=== PATIENT | male | born 1955 | race Caucasian/White ===

== ENCOUNTER → 2016-04-29 | Outpatient (REF) | payer OTHER ==
[2016-04-29 12:53] LABS: ALBUMIN 3.9 GM/DL (3.2-5.2); ALBUMIN/GLOBULIN RATIO 1.22 (1.00-1.93); ALKALINE PHOSPHATASE 92 U/L (45-117); ALT/SGPT 62 U/L (12-78); ANION GAP 10 MEQ/L (8-16); AST/SGOT 25 U/L (15-37); BILIRUBIN,TOTAL 0.5 MG/DL (0.2-1.0); BLOOD UREA NITROGEN 21 MG/DL (7-18); CALCIUM LEVEL 9.5 MG/DL (8.8-10.2); CARBON DIOXIDE LEVEL 28 MEQ/L (21-32); CHLORIDE LEVEL 101 MEQ/L (98-107); CHOLESTEROL LEVEL 170 MG/DL (<200); CREATININE FOR GFR 1.25 MG/DL (0.70-1.30); GLOMERULAR FILTRATION RATE > 60.0 (>49); GLUCOSE, FASTING 182 MG/DL (80-110); POTASSIUM SERUM 4.6 MEQ/L (3.5-5.1); SODIUM LEVEL 139 MEQ/L (136-145); TOTAL PROTEIN 7.1 GM/DL (6.4-8.2); TRIGLYCERIDES LEVEL 233 MG/DL (<150)
== END ==
LOC: M SFHCCLAY 09:13
PROVIDERS: ATTEND Family Medicine
DX: E11.65 Type 2 diabetes mellitus with hyperglycemia (principal)

== ENCOUNTER → 2016-08-16 | Outpatient (REF) | payer OTHER ==
[2016-08-16 11:38] LABS: ALBUMIN 3.5 GM/DL (3.2-5.2); ALBUMIN/GLOBULIN RATIO 0.97 (1.00-1.93); BILIRUBIN,TOTAL 0.5 MG/DL (0.2-1.0); CALCIUM LEVEL 9.2 MG/DL (8.8-10.2); CREATININE FOR GFR 1.35 MG/DL (0.70-1.30); POTASSIUM SERUM 4.7 MEQ/L (3.5-5.1); TOTAL PROTEIN 7.1 GM/DL (6.4-8.2)
== END ==
LOC: M SFHCCLAY 09:22
PROVIDERS: ATTEND Family Medicine
DX: E11.65 Type 2 diabetes mellitus with hyperglycemia (principal)

== ENCOUNTER → 2016-08-26 | Outpatient (CLI) | payer BC, OTHER ==
[~2016-08-26] MED LIST: E-Z-GAS II EFFERVESCENT PACKET (SODIUM BICARB./CITRIC ACID/SIMETHICONE) As Ordered ONE; E-Z-HD 98% w/w 340GM SUSP BTL As Ordered ONE; E-Z-PAQUE 96% w/w SUSP 176GM BTL As Ordered ONE
--- NOTE | 2016-08-27 08:46 | REP ---
UPPER GI AIR CONTRAST AND ESOPHAGRAM: The procedure was performed under the direct supervision of Dr. Chan. The images were reviewed with Dr. Chan. A single view PA chest x-ray is submitted as a environmental research project manager film. There is no change compared to a previous chest x-ray performed on 08/12/2011. The abdominal environmental research project manager film shows no organomegaly or pathological masses. The intestinal gas pattern is nonspecific. Liquid barium and gas producing granules were given in the erect position as well as liquid barium in the prone oblique position in order to perform a double contrast esophagram and upper GI examination. The oral and pharyngeal stages of deglutition are unremarkable. Esophageal transport is prompt and efficient and there no esophagitis, stricture, or mucosal ring or hiatal hernia. Gastroesophageal reflux is not demonstrated on this examination. Within the stomach in the fundus and body of the stomach there are prominent folds which may represent gastritis. There is no alyssa ulcer identified. The duodenal vallecillo are normally outlined. The mucosal folds are smooth and regular. There is no duodenitis, pancreatitis, peptic ulcer disease or neoplasm. There is a duodenal diverticulum seen off the descending portion of the duodenum. IMPRESSION: 1. There are thickened folds in the fundus and body of the stomach which may represent gastritis. There is no alyssa ulcer identified. 2. There is a diverticulum seen off the descending portion of the duodenum. 2 minutes and 4 seconds of fluoroscopic time was utilized for this procedure.
== END ==
LOC: M RAD 08:05
PROVIDERS: ATTEND Surgery
DX: K57.10 Diverticulosis of small intestine without perforation or abscess without bleeding (principal); R10.13 Epigastric pain

== ENCOUNTER → 2016-11-25 | Outpatient (REF) | payer OTHER ==
[2016-11-25 18:30] LABS: ALBUMIN 3.8 GM/DL (3.2-5.2); ALBUMIN/GLOBULIN RATIO 1.12 (1.00-1.93); BILIRUBIN,TOTAL 0.5 MG/DL (0.2-1.0); CALCIUM LEVEL 9.2 MG/DL (8.8-10.2); CREATININE FOR GFR 1.55 MG/DL (0.70-1.30); GLOMERULAR FILTRATION RATE 48.6 (>49); POTASSIUM SERUM 4.9 MEQ/L (3.5-5.1); TOTAL PROTEIN 7.2 GM/DL (6.4-8.2)
== END ==
LOC: M SFHCCLAY 09:45
PROVIDERS: ATTEND Family Medicine
DX: E11.65 Type 2 diabetes mellitus with hyperglycemia (principal); Z12.5 Encounter for screening for malignant neoplasm of prostate
CPT/HCPCS: 80053; 80061; 83036; G0103

== ENCOUNTER → 2017-05-21 | Outpatient (REF) | payer OTHER ==
[2017-05-21 12:41] LABS: ALBUMIN/GLOBULIN RATIO 1.25 (1.00-1.93); ALKALINE PHOSPHATASE 119 U/L (45-117); ALT/SGPT 58 U/L (12-78); ANION GAP 8 MEQ/L (8-16); AST/SGOT 21 U/L (7-37); BILIRUBIN,TOTAL 0.3 MG/DL (0.2-1.0); BLOOD UREA NITROGEN 23 MG/DL (7-18); CALCIUM LEVEL 9.4 MG/DL (8.8-10.2); CARBON DIOXIDE LEVEL 29 MEQ/L (21-32); CHLORIDE LEVEL 101 MEQ/L (98-107); CHOLESTEROL LEVEL 186 MG/DL (<200); CHOLESTEROL RISK RATIO 4.043 (<5); CREATININE FOR GFR 1.45 MG/DL (0.70-1.30); GLOMERULAR FILTRATION RATE 52.5 (>49); GLUCOSE, FASTING 232 MG/DL (70-100); HDL CHOLESTEROL 46 MG/DL (>40); LDL CHOLESTEROL 96.8 MG/DL (<100); NON-HDL-C 140 MG/DL; POTASSIUM SERUM 4.7 MEQ/L (3.5-5.1); PSA SCREENING 3.92 NG/ML (< 4.0); SODIUM LEVEL 138 MEQ/L (136-145); TOTAL PROTEIN 7.2 GM/DL (6.4-8.2); TRIGLYCERIDES LEVEL 216 MG/DL (<150)
[2017-05-21 12:50] LABS: CREATININE, URINE 74.2 MG/DL; MAU/CREAT RATIO 187.3 MCG/MG (0.0-30.0)
[2017-05-21 13:07] LABS: ESTIMATED AVERAGE GLUCOSE 171 MG/DL (60-110); HEMOGLOBIN A1c 7.6 %
== END ==
LOC: M SFHCCLAY 09:09
DX: E11.65 Type 2 diabetes mellitus with hyperglycemia (principal); Z12.5 Encounter for screening for malignant neoplasm of prostate
CPT/HCPCS: 80053

== ENCOUNTER → 2017-08-22 | Outpatient (CLI) | payer BC, OTHER ==
[2017-08-22 17:27] LABS: APPEARANCE, URINE CLEAR (CLEAR); BACTERIA, URINE AUTO NEGATIVE (NEGATIVE); BILIRUBIN, URINE AUTO NEGATIVE (NEGATIVE); BLOOD, URINE BLOOD NEGATIVE (NEGATIVE); COLOR, URINE YELLOW (YELLOW); GLUCOSE, URINE (UA) AUTO 3+ mg/dL (NEGATIVE); KETONE, URINE AUTO NEGATIVE (NEGATIVE); LEUKOCYTE ESTERASE, URINE AUTO NEGATIVE (NEGATIVE); MUCUS, URINE SMALL (NEGATIVE); NITRITE, URINE AUTO NEGATIVE (NEGATIVE); PROTEIN, URINE AUTO 1+ mg/dL (NEGATIVE); RBC, URINE AUTO 0 /HPF (0-3); SPECIFIC GRAVITY URINE AUTO 1.017 (1.002-1.035); SQUAMOUS EPITHELIAL CELL UR AU 0 /HPF (0-6); UROBILINOGEN, URINE AUTO 0.2 mg/dL (0.0-2.0); WBC, URINE AUTO 1 /HPF (0-3)
[2017-08-27 00:07] LABS: PSA TOTAL 3.9 ng/mL (0.0-4.0)
== END ==
LOC: M SMT 14:31
DX: R97.20 Elevated prostate specific antigen [PSA] (principal); N40.1 Benign prostatic hyperplasia with lower urinary tract symptoms
CPT/HCPCS: 84154

== ENCOUNTER → 2017-11-17 | Outpatient (REF) | payer OTHER ==
[2017-11-17 12:17] LABS: ANION GAP 6 MEQ/L (8-16); BLOOD UREA NITROGEN 29 MG/DL (7-18); CALCIUM LEVEL 9.5 MG/DL (8.8-10.2); CARBON DIOXIDE LEVEL 30 MEQ/L (21-32); CHLORIDE LEVEL 104 MEQ/L (98-107); CREATININE FOR GFR 1.26 MG/DL (0.70-1.30); GLOMERULAR FILTRATION RATE > 60.0 (>49); GLUCOSE, FASTING 156 MG/DL (70-100); POTASSIUM SERUM 4.9 MEQ/L (3.5-5.1); SODIUM LEVEL 140 MEQ/L (136-145)
[2017-11-17 13:30] LABS: ESTIMATED AVERAGE GLUCOSE 146 MG/DL (60-110); HEMOGLOBIN A1c 6.7 %
== END ==
LOC: M SFHCCLAY 09:22
DX: E11.65 Type 2 diabetes mellitus with hyperglycemia (principal)
CPT/HCPCS: 83036

== ENCOUNTER → 2018-02-20 | Outpatient (REF) | payer OTHER ==
[2018-02-21 15:23] LABS: PSA % FREE 54.8 % (.); PSA FREE 2.52 ng/mL; PSA TOTAL 4.6 ng/mL (0.0-4.0)
== END ==
LOC: M LABDRAWC 12:18
DX: R97.20 Elevated prostate specific antigen [PSA] (principal)

== ENCOUNTER → 2018-02-20 | Outpatient (REF) | payer OTHER ==
[2018-02-20 13:02] LABS: ALBUMIN/GLOBULIN RATIO 1.18 (1.00-1.93); ALKALINE PHOSPHATASE 92 U/L (45-117); ALT/SGPT 30 U/L (12-78); ANION GAP 7 MEQ/L (8-16); AST/SGOT 16 U/L (7-37); BILIRUBIN,TOTAL 0.4 MG/DL (0.2-1.0); BLOOD UREA NITROGEN 29 MG/DL (7-18); CALCIUM LEVEL 10.3 MG/DL (8.8-10.2); CARBON DIOXIDE LEVEL 29 MEQ/L (21-32); CHLORIDE LEVEL 99 MEQ/L (98-107); CHOLESTEROL LEVEL 179 MG/DL (<200); CHOLESTEROL RISK RATIO 4.068 (<5); CREATININE FOR GFR 1.26 MG/DL (0.70-1.30); GLOMERULAR FILTRATION RATE > 60.0 (>49); GLUCOSE, FASTING 124 MG/DL (70-100); HDL CHOLESTEROL 44 MG/DL (>40); HEPATITIS C VIRUS ABY INDEX 0.1 INDEX (<0.8); HIV 1&2 SCREEN CENTAUR NEGATIVE (NEGATIVE); LDL CHOLESTEROL 92 MG/DL (<100); NON-HDL-C 135 MG/DL; POTASSIUM SERUM 4.8 MEQ/L (3.5-5.1); SODIUM LEVEL 135 MEQ/L (136-145); TOTAL PROTEIN 7.4 GM/DL (6.4-8.2); TRIGLYCERIDES LEVEL 216 MG/DL (<150)
[2018-02-20 15:20] LABS: ESTIMATED AVERAGE GLUCOSE 120 MG/DL (60-110); HEMOGLOBIN A1c 5.8 %
== END ==
LOC: M SFHCCLAY 09:02
DX: E11.65 Type 2 diabetes mellitus with hyperglycemia (principal); Z11.59 Encounter for screening for other viral diseases; Z11.4 Encounter for screening for human immunodeficiency virus [HIV]

== ENCOUNTER → 2018-03-16 | Outpatient (REF) | payer OTHER | LOC: M SMT 17:14 | DX: R97.20 Elevated prostate specific antigen [PSA] (principal) ==

== ENCOUNTER → 2018-03-16 | Outpatient (CLI) | payer BC, OTHER | LOC: M RAD 13:12 | DX: Z82.49 Family history of ischemic heart disease and other diseases of the circulatory system (principal) | CPT/HCPCS: 70544 ==

== ENCOUNTER → 2018-04-21 | Outpatient (CLI) | payer BC, OTHER ==
--- NOTE | 2018-04-21 15:45 | REP ---
TRANSRECTAL PROSTATE ULTRASOUND WITH ULTRASOUND GUIDANCE FOR PROSTATE BIOPSY: Real-time sonographic evaluation of the prostate was performed utilizing transrectal probe. The size of the gland is 5.5 x 4.9 x 5.1 cm for a total volume of 71.8 mL. Echotexture is heterogenous with scattered small calcifications and cysts. There appears to be a right sided nodule 9 x 5 mm and two left sided nodules measuring 15 x 12 and 23 x 16 mm. Seminal vesicles are unremarkable. Ultrasound guidance was provided for Dr. Elizalde who performed ultrasound guided biopsy of the prostate. Electronically Signed by Mendez Peter MD 04/21/2018 04:23 P
== END ==
LOC: M SMT PRO 10:49
PROVIDERS: ATTEND Urology
DX: R97.20 Elevated prostate specific antigen [PSA] (principal)
CPT/HCPCS: 76872; 76942; G0416

== ENCOUNTER → 2018-04-24 | Outpatient (REF) | payer BC, OTHER ==
[2018-04-24 18:08] LABS: APPEARANCE, URINE CLEAR (CLEAR); BACTERIA, URINE AUTO NEGATIVE (NEGATIVE); BILIRUBIN, URINE AUTO NEGATIVE (NEGATIVE); BLOOD, URINE BLOOD 2+ (NEGATIVE); COLOR, URINE YELLOW (YELLOW); GLUCOSE, URINE (UA) AUTO 3+ mg/dL (NEGATIVE); KETONE, URINE AUTO NEGATIVE (NEGATIVE); LEUKOCYTE ESTERASE, URINE AUTO NEGATIVE (NEGATIVE); MUCUS, URINE SMALL (NEGATIVE); NITRITE, URINE AUTO NEGATIVE (NEGATIVE); PROTEIN, URINE AUTO NEGATIVE (NEGATIVE); RBC, URINE AUTO 68 /HPF (0-3); SPECIFIC GRAVITY URINE AUTO 1.015 (1.002-1.035); SQUAMOUS EPITHELIAL CELL UR AU 0 /HPF (0-6); UROBILINOGEN, URINE AUTO 0.2 mg/dL (0.0-2.0); WBC, URINE AUTO 0 /HPF (0-3)
== END ==
LOC: M SMT 17:02
PROVIDERS: ATTEND Urology
DX: N39.0 Urinary tract infection, site not specified (principal)

== ENCOUNTER → 2018-06-25 | Outpatient (REF) | payer OTHER ==
[2018-06-25 13:27] LABS: BLOOD UREA NITROGEN 22 MG/DL (7-18); CALCIUM LEVEL 9.6 MG/DL (8.8-10.2); CARBON DIOXIDE LEVEL 29 MEQ/L (21-32); CHLORIDE LEVEL 102 MEQ/L (98-107); CREATININE FOR GFR 1.28 MG/DL (0.70-1.30); GLOMERULAR FILTRATION RATE > 60.0 (>49); GLUCOSE, FASTING 185 MG/DL (70-100); POTASSIUM SERUM 4.6 MEQ/L (3.5-5.1); SODIUM LEVEL 137 MEQ/L (136-145)
[2018-06-25 14:25] LABS: HEMOGLOBIN A1c 6.8 %
== END ==
LOC: M SFHCCLAY 09:14
PROVIDERS: ATTEND Nurse Practitioner Family
DX: E11.65 Type 2 diabetes mellitus with hyperglycemia (principal)

== ENCOUNTER → 2018-09-10 | Outpatient (CLI) | payer BC, OTHER ==
--- NOTE | 2018-09-10 12:34 | REP ---
Chest two views HISTORY: Hypertension Comparison: 08/12/2011 There is elevation of the right hemidiaphragm. The lungs are clear. The heart is normal in size. The pulmonary vasculature is normal in appearance. Generative change is present in the thoracic spine. IMPRESSION: No acute disease. Electronically Signed by See Delgadillo MD 09/10/2018 12:26 P
== END ==
LOC: M WUC 11:03
PROVIDERS: ATTEND Physician Assistant
DX: R05 Cough (principal)

== ENCOUNTER → 2018-10-13 | Outpatient (REF) | payer OTHER ==
[~2018-10-13] MED LIST changes: +ASPI81TA85 PO; +ATEN50TA2 PO; +ATOR80TA59 PO; +CHLO125TA PO; +CORE25TA PO; -E-Z-GAS II EFFERVESCENT PACKET (SODIUM BICARB./CITRIC ACID/SIMETHICONE) As Ordered ONE; -E-Z-HD 98% w/w 340GM SUSP BTL As Ordered ONE; -E-Z-PAQUE 96% w/w SUSP 176GM BTL As Ordered ONE; +GLUCCAP23 PO; +GLYB5TA PO; +INVO100T PO; +JANU100T PO; +LISI-538 PO; +METF10004 PO; +METO50TA7 PO; +MULTCAP PO; +NITR0.4S14 SL; +OMEP-218 PO; +OYST1TAB PO; +PLAV1TAB2 PO; +TRUL0.5I SC
[2018-10-16 15:45] LABS: PSA % FREE 42.3 % (.); PSA FREE 1.69 ng/mL
== END ==
LOC: M SFHCCLAY 11:41
PROVIDERS: ATTEND Urology
DX: R97.20 Elevated prostate specific antigen [PSA] (principal)

== ENCOUNTER → 2018-11-19 | Outpatient (CLI) | payer OTHER ==
[2018-11-19 14:46] LABS: BASO # 0.1 10^3/uL (0.0-0.2); BASO % 0.8 % (0.0-1.0); EOS # 0.1 10^3/uL (0.0-0.50); EOS % 1.7 % (0.0-3.0); HEMATOCRIT 44.3 % (42.0-52.0); HEMOGLOBIN 15.3 g/dl (13.5-17.5); LYMPH # 1.6 10^3/uL (1.5-4.5); LYMPH % 22.6 % (24.0-44.0); MEAN CORPUSCULAR HEMOGLOBIN 31.2 pg (27.0-33.0); MEAN CORPUSCULAR HGB CONC 34.5 g/dl (32.0-36.5); MEAN CORPUSCULAR VOLUME 90.2 fl (80.0-96.0); MONO # 0.8 10^3/uL (0.0-0.8); MONO % 10.4 % (0.0-5.0); NEUTROPHILS # 4.6 10^3/uL (1.8-7.7); NEUTROPHILS % 64.1 % (36.0-66.0); PLATELET COUNT, AUTOMATED 210 10^3/uL (150-450); RED BLOOD COUNT 4.91 10^6/uL (4.30-6.10); WHITE BLOOD COUNT 7.2 10^3/uL (4.0-10.0)
[2018-11-19 14:54] LABS: CALCIUM LEVEL 9.5 MG/DL (8.8-10.2); CREATININE FOR GFR 1.34 MG/DL (0.70-1.30); GLOMERULAR FILTRATION RATE 57.1 (>49); POTASSIUM SERUM 4.3 MEQ/L (3.5-5.1)
== END ==
LOC: M SMT 10:52
PROVIDERS: ATTEND Physician Assistant
DX: I25.118 Atherosclerotic heart disease of native coronary artery with other forms of angina pectoris (principal)

== ENCOUNTER → 2018-12-25 | Outpatient (REF) | payer OTHER ==
[~2018-12-25] MED LIST changes: -CORE25TA PO; -METO50TA7 PO; -NITR0.4S14 SL; -PLAV1TAB2 PO; -TRUL0.5I SC
[2018-12-25 18:03] LABS: BASO # 0.1 10^3/uL (0.0-0.2); BASO % 0.7 % (0.0-1.0); EOS # 0.2 10^3/uL (0.0-0.5); EOS % 2.2 % (0.0-3.0); HEMATOCRIT 41.6 % (42.0-52.0); HEMOGLOBIN 14.3 g/dl (13.5-17.5); LYMPH # 1.3 10^3/uL (1.5-5.0); LYMPH % 19.8 % (24.0-44.0); MEAN CORPUSCULAR HGB CONC 34.4 g/dl (32.0-36.5); MONO # 0.7 10^3/uL (0.0-0.8); NEUTROPHILS # 4.5 10^3/uL (1.5-8.5); PLATELET COUNT, AUTOMATED 183 10^3/uL (150-450); RED BLOOD COUNT 4.62 10^6/uL (4.30-6.10); WHITE BLOOD COUNT 6.7 10^3/uL (4.0-10.0)
[2018-12-25 18:08] LABS: ALBUMIN 3.8 GM/DL (3.2-5.2); BILIRUBIN,TOTAL 0.4 MG/DL (0.2-1.0); CALCIUM LEVEL 10.2 MG/DL (8.8-10.2); CHOLESTEROL RISK RATIO 2.962 (<5); CREATININE FOR GFR 1.34 MG/DL (0.70-1.30); GLOMERULAR FILTRATION RATE 57.1 (>49); POTASSIUM SERUM 4.6 MEQ/L (3.5-5.1); TOTAL PROTEIN 6.9 GM/DL (6.4-8.2)
[2018-12-25 18:40] LABS: CREATININE, URINE 44.3 MG/DL; MAU/CREAT RATIO 528.2 MCG/MG (0.0-30.0)
[2018-12-25 19:25] LABS: HEMOGLOBIN A1c 7.6 %
== END ==
LOC: M SFHCCLAY 10:06
PROVIDERS: ATTEND Nurse Practitioner Family
DX: E11.65 Type 2 diabetes mellitus with hyperglycemia (principal); I10 Essential (primary) hypertension

== ENCOUNTER → 2019-01-29 | Outpatient (REF) | payer OTHER ==
[2019-01-29 12:16] LABS: BLOOD UREA NITROGEN 17 MG/DL (7-18); CALCIUM LEVEL 10.2 MG/DL (8.8-10.2); CARBON DIOXIDE LEVEL 27 MEQ/L (21-32); CHLORIDE LEVEL 102 MEQ/L (98-107); CREATININE FOR GFR 1.22 MG/DL (0.70-1.30); GLOMERULAR FILTRATION RATE > 60.0 (>49); GLUCOSE, FASTING 179 MG/DL (70-100); POTASSIUM SERUM 4.4 MEQ/L (3.5-5.1); SODIUM LEVEL 138 MEQ/L (136-145)
== END ==
LOC: M SFHCCLAY 09:13
PROVIDERS: ATTEND Nurse Practitioner Family
DX: I10 Essential (primary) hypertension (principal)

== ENCOUNTER → 2019-03-25 | Outpatient (REF) | payer OTHER ==
[2019-03-25 18:40] LABS: HEMATOCRIT 38.8 % (42.0-52.0); HEMOGLOBIN 12.4 g/dl (13.5-17.5); MEAN CORPUSCULAR HEMOGLOBIN 28.9 pg (27.0-33.0); MEAN CORPUSCULAR VOLUME 90.4 fl (80.0-96.0); PLATELET COUNT, AUTOMATED 236 10^3/uL (150-450); RED BLOOD COUNT 4.29 10^6/uL (4.30-6.10); WHITE BLOOD COUNT 6.8 10^3/uL (4.0-10.0)
[2019-03-25 18:41] LABS: BLOOD UREA NITROGEN 19 MG/DL (7-18); CALCIUM LEVEL 8.5 MG/DL (8.8-10.2); CARBON DIOXIDE LEVEL 30 MEQ/L (21-32); CHLORIDE LEVEL 105 MEQ/L (98-107); CREATININE FOR GFR 1.12 MG/DL (0.70-1.30); GLOMERULAR FILTRATION RATE > 60.0 (>49); GLUCOSE, FASTING 149 MG/DL (70-100); POTASSIUM SERUM 4.1 MEQ/L (3.5-5.1); SODIUM LEVEL 138 MEQ/L (136-145)
== END ==
LOC: M LABDRAWC 17:19 → M LABDRAW1 17:19
PROVIDERS: ATTEND Physician Assistant
DX: I25.118 Atherosclerotic heart disease of native coronary artery with other forms of angina pectoris (principal)

== ENCOUNTER → 2019-03-25 | Outpatient (REF) | payer OTHER | LOC: M SFHCCLAY 09:27 | PROVIDERS: ATTEND Nurse Practitioner Family | DX: R97.20 Elevated prostate specific antigen [PSA] (principal) ==

== ENCOUNTER 2019-04-12 12:54 | Outpatient (RCR) | payer BC, OTHER ==
--- NOTE | 2019-04-01 13:52 | CARECAPL ---
Assessment Account #s: Initial Assessment General Diagnoses: CABG, Stent Date of event: Feb 05, 2019 Physician: Kaiden Lord Allergies: Coded Allergies: No Known Allergies (Unverified , 11/17/18) Risk strat for cardiac event: High Exercise Assessment: Initial Assessment Stages of change: Pre-contemplation Exercise Prescription Plan Educate on cardiovascular disease and increase endurance, strength and flexibility through monitored exercise program. Modalities initiated: Treadmill (will add speed 2.0 for 8 minutes), Nustep (will add level 1 for 6 minutes), Arm Aerometer (will add resistance of 1 for 5 minutes), Dumbells (will add 1lbs), Recumbent Bike (will add resistance of 1 for 5 minutes.) Frequency: 3 Duration (Minutes) 30 - 60 minutes total exercise a day. 15 - 20 work intervals in minutes. PRN rest intervals in minutes. Functional Capacity Goal Sustained Metabolic Equivalent of a task (MET) goal of 2.5-3.5 for 15-20 minutes. Intensity: 3-Moderate Progression (METS) Increase by: 0.5 METS every: 3-5 sessions Angina with ex: No Target Heart Rate 101-133 age prediction of 65% to 85%. Resistance Training: Yes Weight (pounds): 1 Reps: 6-8 Medications Scheduled Aspirin (Aspir 81), 81 MG PO DAILY, (Reported) Atorvastatin Calcium (Atorvastatin Calcium), 80 MG PO DAILY, (Reported) Chlorthalidone (Chlorthalidone), 12.5 MG PO DAILY, (Reported) Clopidogrel Bisulfate (Plavix), 75 MG PO DAILY, (Reported) Dulaglutide (Trulicity), 1.5 MG SC Q7D, (Reported) Glucos Sul 2Kcl/MSM/Chond/C/Mn (Glucosamine Chondroitin Cap), 1 EACH PO DAILY, (Reported) Glyburide (Glyburide), 5 MG PO BID, (Reported) Lisinopril (Lisinopril), 10 MG PO DAILY, (Reported) Metformin HCl (Metformin HCl), 1,000 MG PO BID, (Reported) Nitroglycerin (Nitroglycerin), 0.4 MG SL ASDIRECTED, (Reported) Omeprazole (Omeprazole), 20 MG PO BID, (Reported) Sitagliptin Phosphate (Januvia), 100 MG PO DAILY, (Reported) Discontinued Medications Atenolol (Atenolol), 75 MG PO DAILY, (Reported) Discontinued Reason: PCP discontinued med Calcium Carbonate (Calcium), 500 MG PO DAILY, (Reported) Discontinued Reason: PCP discontinued med Canagliflozin (Invokana), 100 MG PO DAILY, (Reported) Discontinued Reason: PCP discontinued med Metoprolol Tartrate (Metoprolol Tartrate), 50 MG PO BID, (Reported) Discontinued Reason: Pt states not taking Multivitamin (Multivitamins), 1 CAP PO DAILY, (Reported) Discontinued Reason: PCP discontinued med Intervention Home exercise: Type (walking), Frequency (5 days a week ), Duration (60 minutes) Resistance Training: No Education Goals Met: No Target Goals Individual exercise Rx (1) BP 140/90 or 130/80 if DM or CKD (1) Aerobic active 30+min 5 days per week (1) Nutrition Date: Apr 01, 2019 Assessment: Initial Assessment Stages of change: Pre-contemplation Lipids Total Cholesterol (157), High Density Lipids (HDL) (53), Low Density Lipids (LDL) (69), Triglycerides (176), Duration (2.962) Lipid- med/supplement atorvastatin Diabetes Diabetes: Yes Fasting Blood Sugar: 179 HbA1c (%): 7.6 Diabetes medication trucility, glyburide and metformin Monitor Blood Sugar at home: Yes Frequency bid Weight Management Weight (lbs): 210.2 Height (inches): 63 Waist Circumference (Inches): 46 BMI: 37.20 Weight goal: 170 Special Diet: low salt, low-fat Alcohol: special Alcohol Type: beer Alcohol Amount: 1-2 Diet Access Tool: Rate your plate Score: 51 Intervention Knockup Worker Consult: No Nurse/patient discussion: No Diet Class: No Referral to Diabetes education: No Referral to lipid clinic: No Referral to weight mangement p: No Education Goals Met: No Target goal LDL-C<100 if triglycerides are >200 Non-HDL-C should be <130 (1) LDL-C<70 for high risk patients (4) HbA1c<7% (1) BMI<25 Waist cir<40in M/<35in F (1) Education Date: Apr 01, 2019 Assessment: Initial Assessment Knowledge Test Score: 9 Stages of change: Pre-contemplation Family Support: Yes Tobacco use: No Quit: >6 months (quit 1981) Education Goals Met: No Target Goals Complete cessation of tobacco use (1). Psychosocial Date: Apr 01, 2019 Assessment: Initial Assessment Psych Test (Initial/Discharge) Tool Used: CESD Score: 0 Stages of change: Pre-contemplation Intervention Physician Consult: No Physician Referral: No Psychotropic medication none Stress Management Class: No Uses Stress Management Skills: No Education Goals Met: No Target Goal Assess presence or absence of depression using a valid screening tool (1). Maximize coping skills (2). Positive support system (2). Patient/Program Goal Preventative Medication: Yes Aspirin, Yes Clopidogrel, Yes HANNAH Inhibitor, Yes Statin/OTR lipid Lowering Fall Risk Assess: Yes (no fall risk) Provider Assessment Provider Assessment: Proceed with rehab Anali Harman RN Apr 01, 2019 13:52
[~2019-04-12 12:54] MED LIST changes: +METO50TA7 PO; +NITR0.4S14 SL; +PLAV1TAB2 PO; +TRUL0.5I SC
[2019-04-19] MEDS ORDERED: CORE25TA PO (09:52)
== END 2019-04-13 ==
LOC: M CR 12:54
PROVIDERS: ATTEND Internal Medicine Cardiovascular Disease
DX: Z95.1 Presence of aortocoronary bypass graft (principal)

== ENCOUNTER → 2019-05-14 | Outpatient (RCR) | payer BC, OTHER ==
--- NOTE | 2019-04-26 10:36 | CARECAPL ---
Assessment Account #s: Re-Assessment I General Diagnoses: CABG, Stent Date of event: Feb 05, 2019 Physician: Kaiden Lord Allergies: Coded Allergies: No Known Allergies (Unverified , 11/17/18) Date Entered Program: Apr 09, 2019 Risk strat for cardiac event: High Exercise Date: Apr 23, 2019 Assessment: Re-Assessment I Stages of change: Contemplate Exercise Prescription Plan Educate on cardiovascular disease and increase flexibility, strength and endurance through a monitored exercise program. Modalities initiated: Treadmill (speed 2.5 incline 1.5 for 10 minutes mets 3.26 RPE 3), Nustep (resistance of 4 for 15 minutes. Mets 3.4 RPE 3), Arm Aerometer (resistance of 1.5 for 10 minutes. Mets 2.4 RPE 3.5), Dumbells (5lb 1 set 15 reps RPE 3.5), Recumbent Bike (resistance of 8 minutes. Mets 3.2 RPE 4) Frequency: 3 Duration (Minutes) 30 - 60 minutes total exercise a day. 15 - 20 work intervals in minutes. PRN rest intervals in minutes. Functional Capacity Goal Sustained Metabolic Equivalent of a task (MET) goal of 3.5-4.5 for 13-20 minutes. Intensity: 3-Moderate Progression (METS) Increase by: 0.5 METS every: 3-5 sessions Angina with ex: No Target Heart Rate rest + 35-40 per beta crow therapy. Resistance Training: Yes Weight (pounds): 5 Reps: 12-15 Hypertension: No Hypertension controlled with: Medication Resting 152/80 Peak Exercise BP 160/90 Meds Coreg Medications Scheduled Aspirin (Aspir 81), 81 MG PO DAILY, (Reported) Atorvastatin Calcium (Atorvastatin Calcium), 80 MG PO DAILY, (Reported) Carvedilol (Coreg), 25 MG PO BID, (Reported) Chlorthalidone (Chlorthalidone), 12.5 MG PO DAILY, (Reported) Clopidogrel Bisulfate (Plavix), 75 MG PO DAILY, (Reported) Dulaglutide (Trulicity), 1.5 MG SC Q7D, (Reported) Glucos Sul 2Kcl/MSM/Chond/C/Mn (Glucosamine Chondroitin Cap), 1 EACH PO DAILY, (Reported) Glyburide (Glyburide), 5 MG PO BID, (Reported) Lisinopril (Lisinopril), 10 MG PO DAILY, (Reported) Metformin HCl (Metformin HCl), 1,000 MG PO BID, (Reported) Nitroglycerin (Nitroglycerin), 0.4 MG SL ASDIRECTED, (Reported) Omeprazole (Omeprazole), 20 MG PO BID, (Reported) Sitagliptin Phosphate (Januvia), 100 MG PO DAILY, (Reported) Intervention Education: Self pulse (patient demonstrate taking his pulse.), Ex safety (patient states to keep hydrated and wear loose comfortable clothing to exercise.), S/S to report (patient states report chest pain that does not go away, Nausea /vomiting and excessive sweating without exercise), Low NA diet (patient states he does not add salt to his food if he does it will increase his blood pressure.), BP medication (patient states Coreg decreases his blood pressure and lowers his heart rate.), RPE Scale (patient demonstrates independently), Equipment orientation (patient demonstrates independent), warm up/cool down (demonstrates independently), Understand BP (patient understands that his blood pressure should be below 130/80), Physical Active (patient understands that he should remain physically active after attending cardiac rehabilitation which includes going to [employer] or [facility].) Education Goals Met: No (will continue to educate throughout program.) Target Goals Individual exercise Rx (1) BP 140/90 or 130/80 if DM or CKD (1) Aerobic active 30+min 5 days per week (1) Nutrition Date: Apr 26, 2019 Assessment: Re-Assessment I Stages of change: Contemplate Med Change: No Diabetes Diabetes: Yes Medication Change: No Random Blood Sugar: 197 Blood sugar in range: Yes Current Weight (pounds): 210.4 Weight Goal Patient would like to lose 20 pounds Education S&S hypo/hyper glycemia (patient described signs and symptoms of hypo-hyper glycemia such as excessive hunger, fatigue and shakiness. Hyperglycemia would be frequent urination, increased hunger, and increased thirst. ), Relate Diabetes in CAD (increased blood sugars contribute to clogging of the arteries which contributes to coronary artery disease), Eating Healthy (patient stated eating healthier by eating more vegetables and whole grains.) Education Goals Met: No (will continue educate throughout program) Target goal LDL-C<100 if triglycerides are >200 Non-HDL-C should be <130 (1) LDL-C<70 for high risk patients (4) HbA1c<7% (1) BMI<25 Waist cir<40in M/<35in F (1) Education Date: Apr 26, 2019 Assessment: Re-Assessment I Family Support: Yes Tobacco use: No Education Goals Met: No (will continue to educate throughout program) Target Goals Complete cessation of tobacco use (1). Psychosocial Date: Apr 26, 2019 Assessment: Re-Assessment I Stages of change: Contemplate Med Change: No Education Goals Met: No (we'll continue to educate throughout program) Target Goal Assess presence or absence of depression using a valid screening tool (1). Maximize coping skills (2). Positive support system (2). Patient/Program Goal Preventative Medication: Yes Clopidogrel, Yes Beta blockade, Yes HANNAH Inhibitor, Yes Statin/OTR lipid Lowering Fall Risk Assess: Yes (not fall risk) Provider Assessment Session Number: 7 Provider Assessment: Proceed with rehab (patient was progressing well and attendance is good.) Anali Harman RN Apr 26, 2019 10:36
[~2019-05-14] MED LIST changes: +CORE25TA PO
== END ==
LOC: M CR 04-15 10:57
PROVIDERS: ATTEND Internal Medicine Cardiovascular Disease
DX: Z95.1 Presence of aortocoronary bypass graft (principal)

== ENCOUNTER 2019-06-09 11:22 | Outpatient (RCR) | payer BC, OTHER ==
--- NOTE | 2019-05-24 17:32 | CARECAPL ---
Assessment Account #s: Re-Assessment II General Diagnoses: CABG, Stent Date of event: Feb 05, 2019 Physician: Kaiden Lord Allergies: Coded Allergies: No Known Allergies (Unverified , 11/17/18) Date Entered Program: Apr 09, 2019 Risk strat for cardiac event: High Exercise Date: May 24, 2019 Assessment: Re-Assessment II Stages of change: Preperation Exercise Prescription Plan TO EDUCATE AND BUILD ENDURANCE THROUGH MONITORED EXERCISE PROGRAM Modalities initiated: Treadmill (METS=4.19/RPE=3), Nustep (METS=4.9/RPE=3.5), Arm Aerometer (METS=2.6/RPE=3.5), Dumbells (8#/RPE=3), Recumbent Bike (METS=5.6/RPE=3) Frequency: 3 Duration (Minutes) 30 - 60 minutes total exercise a day. 15 - 20 work intervals in minutes. PRN rest intervals in minutes. Functional Capacity Goal Sustained Metabolic Equivalent of a task (MET) goal of 4.5-5.5 for 15-20 minutes. Intensity: 3-Moderate Progression (METS) Increase by: 0.5 METS every: 5 sessions TOLERATED Angina with ex: No Target Heart Rate REST + 35-40 Resistance Training: Yes Weight (pounds): 8 Reps: 12-15 Hypertension: Yes Hypertension controlled with: Medication (CARVEDILOL, CHLORTHALIDONE, LISINOPRIL) Resting 126/80 Peak Exercise BP 162/100 Medications Scheduled Aspirin (Aspir 81), 81 MG PO DAILY, (Reported) Atorvastatin Calcium (Atorvastatin Calcium), 80 MG PO DAILY, (Reported) Carvedilol (Coreg), 25 MG PO BID, (Reported) Chlorthalidone (Chlorthalidone), 12.5 MG PO DAILY, (Reported) Clopidogrel Bisulfate (Plavix), 75 MG PO DAILY, (Reported) Dulaglutide (Trulicity), 1.5 MG SC Q7D, (Reported) Glucos Sul 2Kcl/MSM/Chond/C/Mn (Glucosamine Chondroitin Cap), 1 EACH PO DAILY, (Reported) Glyburide (Glyburide), 5 MG PO BID, (Reported) Lisinopril (Lisinopril), 10 MG PO DAILY, (Reported) Metformin HCl (Metformin HCl), 1,000 MG PO BID, (Reported) Nitroglycerin (Nitroglycerin), 0.4 MG SL ASDIRECTED, (Reported) Omeprazole (Omeprazole), 20 MG PO BID, (Reported) Sitagliptin Phosphate (Januvia), 100 MG PO DAILY, (Reported) Current BP 98/56 Intervention Home exercise: Type (WALKING, HAND WEIGHTS, HOME EXERCISE EQUIPMENT, JOIN GYM), Frequency (3-5 DAYS PER WEEK), Duration (30-60 MINUTES) Resistance Training: Yes Education: Self pulse (SEE EDUCATION COMPLETED ON PRIOR ITP'S, CONTINUE TO REINFORCE EDUCATION THROUGHOUT PROGRAM) Education Goals Met: Yes (PROGRESSING TOWARDS GOALS) Target Goals Individual exercise Rx (1) BP 140/90 or 130/80 if DM or CKD (1) Aerobic active 30+min 5 days per week (1) Nutrition Date: May 24, 2019 Assessment: Re-Assessment II Stages of change: Preperation Lipid- med/supplement ATORVASTATIN Med Change: No Diabetes Diabetes: Yes Fasting Blood Sugar: 125 Diabetes medication GLYBURIDE, METFORMIN, JANUVIA Monitor Blood Sugar at home: Yes Medication Change: No Random Blood Sugar: 125 Blood sugar in range: Yes Weight Management Weight (lbs): 211 Special Diet: low salt Current Weight (pounds): 211 Weight Goal 190# Intervention Media/Instructional Designer Consult: No Nurse/patient discussion: Yes Dietary Goals MAKE HEART HEALTHY CHOICES, SMALLER PORTIONS Diet Class: Yes (MET WITH CLINICAL NURSE LEADER 05/24/2019) Referral to Diabetes education: No Referral to lipid clinic: No Referral to weight mangement p: No Education S&S hypo/hyper glycemia (SEE EDUCATION COMPLETED ON PRIOR ITP'S, EDUCATION REINFORCED THROUGHOUT PROGRAM) Education Goals Met: Yes (PROGRESSING TOWARD GOALS) Target goal LDL-C<100 if triglycerides are >200 Non-HDL-C should be <130 (1) LDL-C<70 for high risk patients (4) HbA1c<7% (1) BMI<25 Waist cir<40in M/<35in F (1) Education Date: May 24, 2019 Assessment: Re-Assessment II Learning Barriers: ready Stages of change: Preperation Family Support: Yes Tobacco use: No Tobacco Use Smokeless tobacco: No Intervention Referral to smoking cessation: No Individual education and couns: No Tobacco Adjunct: No Education class schedule given: No Attended education classes: No Education: med compliance (DISCUSSED IMPORTANCE OF MEDICATION COMPLIANCE WITH ALL MEDICATIONS PRESCRIBED, PATIENT VERBALIZES UNDERSTANDING), Angina S/S (REVIEWED ANGINA S/S, IMPORTANCE OF CALLING 911 IF NO RELIEF FROM NITRO), Sexuality (PATIENT AWARE NOT TO ENGAGE IN SEXUAL ACTIVITY UNTIL OK'D BY MD) Education Goals Met: Yes (PROGRESSING TOWARD GOALS) Target Goals Complete cessation of tobacco use (1). Psychosocial Date: May 24, 2019 Assessment: Re-Assessment II Stages of change: Preperation Intervention Physician Consult: No Physician Referral: No Med Change: No Stress Management Class: No Uses Stress Management Skills: Yes Education Education: Coping Techniques (REVIEWED COPING TECHNIQUES SUCH TALKING WITH FRIENDS OR FAMILY, EXPRESSING HIMSELF,REDUCING STRESS), S/S depression (REVIEWED S/S OF DEPRESSION SUCH WITHDRAWAL, LACK OF INTEREST, LACK OF APPETITE, PATIENT VERBALIZES UNDERSTANDING), Relaxation Techniques (REVIEWED IMPORTANCE OF RELAXATION SUCH LISTENING TO MUSIC,READING, EXERCISE, PATIENT VERBALIZES UNDERSTANDING) Target Goal Assess presence or absence of depression using a valid screening tool (1). Maximize coping skills (2). Positive support system (2). Patient/Program Goal Preventative Medication: Yes Clopidogrel, Yes Beta blockade, Yes HANNAH Inhibitor, Yes Statin/OTR lipid Lowering Fall Risk Assess: Yes (NOT A FALL RISK) Provider Assessment Session Number: 20 Provider Assessment: Proceed with rehab (EXCELLENT ATTENDENCE AND VERY RECEPTIVE TO EDUCATION) Adams Ratliff RN May 24, 2019 17:32
[2019-05-26 09:29] VITALS: BP 102/70
[2019-05-26 10:26] VITALS: BP 146/86
[2019-05-26 11:02] VITALS: BP 114/72
[2019-05-28 11:10] VITALS: BP 120/70
[2019-05-28 11:24] VITALS: BP 172/94
[2019-05-28 11:25] VITALS: BP 100/72
[2019-05-31 09:24] VITALS: BP 116/76
[2019-05-31 10:27] VITALS: BP 132/70
[2019-05-31 10:56] VITALS: BP 102/66
[2019-06-02 13:15] VITALS: BP 138/88
[2019-06-02 13:51] VITALS: BP 190/100
[2019-06-02 14:58] VITALS: BP 122/82
[2019-06-04 13:02] VITALS: BP 130/84
[2019-06-04 13:45] VITALS: BP 180/110
[2019-06-04 14:32] VITALS: BP 104/76
[2019-06-07 12:57] VITALS: BP 128/86
[2019-06-07 13:35] VITALS: BP 160/100
[2019-06-07 14:43] VITALS: BP 126/88
[~2019-06-09] VITALS: Ht 160 cm; Wt 97.4 kg
[2019-06-09 10:00] VITALS: BP 140/86
[2019-06-09 11:05] VITALS: BP 148/86
[2019-06-09 11:30] VITALS: BP 142/82
== END 2019-06-12 ==
LOC: M CR 11:22
PROVIDERS: ATTEND Internal Medicine Cardiovascular Disease
DX: Z95.1 Presence of aortocoronary bypass graft (principal)

== ENCOUNTER 2019-06-14 13:24 | Outpatient (RCR) | payer BC, OTHER ==
[~2019-06-14] VITALS: Ht 160 cm; Wt 95.6 kg
[2019-06-14 15:03] VITALS: BP_SYST 152; BP_SYST 170; BP_DIAS 100; BP_DIAS 80
[2019-06-14 15:18] VITALS: BP 110/60
[2019-06-16 12:38] VITALS: BP 122/80
[2019-06-16 13:15] VITALS: BP 170/90
[2019-06-16 14:10] VITALS: BP 116/80
[2019-06-17 13:19] VITALS: BP 140/80
[2019-06-17 13:22] VITALS: BP 160/88
[2019-06-17 13:23] VITALS: BP 128/78
--- NOTE | 2019-06-21 09:03 | CARECAPL ---
Assessment Account #s: Re-Assessment II (III) General Diagnoses: CABG, Stent Date of event: Feb 05, 2019 Physician: Kaiden Lord Allergies: Coded Allergies: No Known Allergies (Unverified , 11/17/18) Date Entered Program: Apr 09, 2019 Risk strat for cardiac event: High Exercise Date: Jun 21, 2019 Assessment: Re-Assessment II (III) Stages of change: action Exercise Prescription Modalities initiated: Nustep (L8 15 MINUTES MTS 5.1 RPE 4), Arm Aerometer (3.0 10 MINUTES MTS S2.9 RPE 3.5), Dumbells, Recumbent Bike (R3 13 MINUTES MTS 5.6 RPE 3.5), Elliptimill (L2 7 MINUTES MTS 2.63 RPE 3.5) Duration (Minutes) 30 - 60 minutes total exercise a day. 15 - 20 work intervals in minutes. PRN rest intervals in minutes. Functional Capacity Goal Sustained Metabolic Equivalent of a task (MET) goal of 4.5-5.5 for 15-20 minutes. Intensity: 4-Quite a bit Progression (METS) Increase by: METS every: sessions Angina with ex: No Weight (pounds): 5 Reps: 8-12 Hypertension: Yes Hypertension controlled with: Medication Resting 140/80 Peak Exercise BP 160/88 Meds SEE BELOW Medications Scheduled Aspirin (Aspir 81), 81 MG PO DAILY, (Reported) Atorvastatin Calcium (Atorvastatin Calcium), 80 MG PO DAILY, (Reported) Carvedilol (Coreg), 25 MG PO BID, (Reported) Chlorthalidone (Chlorthalidone), 12.5 MG PO DAILY, (Reported) Clopidogrel Bisulfate (Plavix), 75 MG PO DAILY, (Reported) Dulaglutide (Trulicity), 1.5 MG SC Q7D, (Reported) Glucos Sul 2Kcl/MSM/Chond/C/Mn (Glucosamine Chondroitin Cap), 1 EACH PO DAILY, (Reported) Glyburide (Glyburide), 5 MG PO BID, (Reported) Lisinopril (Lisinopril), 10 MG PO DAILY, (Reported) Metformin HCl (Metformin HCl), 1,000 MG PO BID, (Reported) Nitroglycerin (Nitroglycerin), 0.4 MG SL ASDIRECTED, (Reported) Omeprazole (Omeprazole), 20 MG PO BID, (Reported) Sitagliptin Phosphate (Januvia), 100 MG PO DAILY, (Reported) Current BP 128/78 POST EXERCISE Med Change: Yes Education Goals Met: Yes (ALL EDUCATIONS DONE-SEE PRIOR ITP'S) Target Goals Individual exercise Rx (1) BP 140/90 or 130/80 if DM or CKD (1) Aerobic active 30+min 5 days per week (1) Nutrition Date: Jun 21, 2019 Assessment: Re-Assessment II (III) Stages of change: Contemplate Med Change: No Diabetes Diabetes: Yes Fasting Blood Sugar: 154 Medication Change: No Random Blood Sugar: 154 Blood sugar in range: No Current Weight (pounds): 208.5 Intervention Diet Class: Yes (SEEN THIS PROGRAM) Education S&S hypo/hyper glycemia (STATES UNDERSTANDING OF S/S OF HYPO/HYPER GLYCEMIA), Relate Diabetes in CAD (UNDERSTANDING OF INCREASE RISK OF CARDIAC DISEASE IN DIABETICS), Eating Healthy (EDUCATION WITH WELDING MACHINE OPERATOR SUBMERGED ARC-HAVING A DIFFICULT TIME WITH WT LOSS/BLOOD GLUCOSE LEVELS) Education Goals Met: Yes Target goal LDL-C<100 if triglycerides are >200 Non-HDL-C should be <130 (1) LDL-C<70 for high risk patients (4) HbA1c<7% (1) BMI<25 Waist cir<40in M/<35in F (1) Education Date: Jun 21, 2019 Assessment: Re-Assessment II (III) Stages of change: Preperation Tobacco use: No Intervention Attended education classes: Yes Education: med compliance (UNDERSTANDING OF MEDICATION COMPLIANCE), Angina S/S (UNDERSTANDING OF ANGINA AND ACTIONS TO TAKE WITH CHEST PAIN) Education Goals Met: Yes Target Goals Complete cessation of tobacco use (1). Psychosocial Date: Jun 21, 2019 Assessment: Re-Assessment II (III) Stages of change: action Uses Stress Management Skills: Yes Education Education: Coping Techniques (EXCELLENT COPING TECHNIQUES ), S/S depression (KRAMES EDUCATION GIVEN AND REVIEWED WITH PT), Relaxation Techniques (KRAMES EDUCATIN AND RELAXATIONS TECHNIQUES REIEWED WITH PT) Target Goal Assess presence or absence of depression using a valid screening tool (1). Maximize coping skills (2). Positive support system (2). Provider Assessment Session Number: 30 Provider Assessment: No changes Wendy Glez RN Jun 21, 2019 09:03
[2019-06-21 12:46] VITALS: BP 138/84
[2019-06-21 13:25] VITALS: BP 200/110
[2019-06-21 14:27] VITALS: BP 110/80
[2019-06-23 11:11] VITALS: BP 122/80
[2019-06-25 09:31] VITALS: BP 110/60
[2019-06-25 10:00] VITALS: BP 144/100
[2019-06-25 11:12] VITALS: BP 110/80
[2019-06-28 09:44] VITALS: BP 152/84
[2019-06-28 10:12] VITALS: BP 176/90
[2019-06-28 10:56] VITALS: BP 126/80
[2019-06-28 11:19] VITALS: BP 132/78
[2019-06-30 09:34] VITALS: BP 138/80
[2019-06-30 10:06] VITALS: BP 160/90
[2019-06-30 11:02] VITALS: BP 110/76
[2019-07-02 09:13] VITALS: BP 152/88
[2019-07-02 09:43] VITALS: BP 180/100
[2019-07-02 10:44] VITALS: BP 102/72
--- NOTE | 2019-07-02 11:16 | CARECAPL ---
Assessment Account #s: Discharge General Diagnoses: CABG, Stent Date of event: Feb 05, 2019 Physician: Kaiden Lord Allergies: Coded Allergies: No Known Allergies (Unverified , 11/17/18) Date Entered Program: Apr 09, 2019 Risk strat for cardiac event: High Exercise Date: Jul 02, 2019 Assessment: Followup/Discharge Stages of change: action Exercise Prescription Plan TO EDUCATE AND BUILD ENDURANCE THROUGH MONITORED EXERCISE PROGRAM Modalities initiated: Nustep (METS=5.0/RPE=3.5), Arm Aerometer (METS=3.1/RPE=3), Dumbells (5#/RPE=3.5), Recumbent Bike (METS=7.6/RPE=3), Elliptimill (METS=2.6/RPE=3) Frequency: 3 Duration (Minutes) 30 - 60 minutes total exercise a day. 15 - 20 work intervals in minutes. PRN rest intervals in minutes. Functional Capacity Goal Sustained Metabolic Equivalent of a task (MET) goal of 4.5-5.5 for 15-20 minutes. Intensity: 3-Moderate Progression (METS) Increase by: METS every: sessions Angina with ex: No Resistance Training: No Weight (pounds): 5 Reps: 12-15 Hypertension: Yes Hypertension controlled with: Medication Resting 152/88 Peak Exercise BP 180/100 Medications Scheduled Aspirin (Aspir 81), 81 MG PO DAILY, (Reported) Atorvastatin Calcium (Atorvastatin Calcium), 80 MG PO DAILY, (Reported) Carvedilol (Coreg), 25 MG PO BID, (Reported) Chlorthalidone (Chlorthalidone), 12.5 MG PO DAILY, (Reported) Clopidogrel Bisulfate (Plavix), 75 MG PO DAILY, (Reported) Dulaglutide (Trulicity), 1.5 MG SC Q7D, (Reported) Glucos Sul 2Kcl/MSM/Chond/C/Mn (Glucosamine Chondroitin Cap), 1 EACH PO DAILY, (Reported) Glyburide (Glyburide), 5 MG PO BID, (Reported) Lisinopril (Lisinopril), 10 MG PO DAILY, (Reported) Metformin HCl (Metformin HCl), 1,000 MG PO BID, (Reported) Nitroglycerin (Nitroglycerin), 0.4 MG SL ASDIRECTED, (Reported) Omeprazole (Omeprazole), 20 MG PO BID, (Reported) Sitagliptin Phosphate (Januvia), 100 MG PO DAILY, (Reported) Current BP 102/72 Med Change: No Intervention Resistance Training: Yes Education Goals Met: Yes (SEE EDUCATION ON PRIOR ITP'S, CONTINUED EDUCATION AND REINFORCED THROUGHOUT PROGRAM) Target Goals Individual exercise Rx (1) BP 140/90 or 130/80 if DM or CKD (1) Aerobic active 30+min 5 days per week (1) Nutrition Date: Jul 02, 2019 Assessment: Followup/Discharge Med Change: No Diabetes Diabetes: Yes Fasting Blood Sugar: 190 Monitor Blood Sugar at home: Yes Medication Change: No Blood sugar in range: No Weight Management Weight (lbs): 210.6 Waist Circumference (Inches): 45 BMI: 37.3 Score: 48 Current Weight (pounds): 210.6 Intervention People Manager Consult: No Nurse/patient discussion: Yes Dietary Goals TO MAKE HEART HEALTHY DIET CHOICES AND SMALLER PORTIONS Diet Class: Yes (MET FURNACE RELINER 05/24/2019) Referral to Diabetes education: No Referral to lipid clinic: No Referral to weight mangement p: No Education Eating Healthy Education Goals Met: Yes (SEE EDUCATION ON PRIOR ITP'S,CONTINUED EDUCATION THROUGHOUT PROGRAM) Target goal LDL-C<100 if triglycerides are >200 Non-HDL-C should be <130 (1) LDL-C<70 for high risk patients (4) HbA1c<7% (1) BMI<25 Waist cir<40in M/<35in F (1) Education Date: Jul 02, 2019 Assessment: Followup/Discharge Learning Barriers: ready Knowledge Test Score: 10 Stages of change: action Family Support: Yes Tobacco use: No (QUIT 1982) Tobacco Use Smokeless tobacco: No Intervention Referral to smoking cessation: No Individual education and couns: No Tobacco Adjunct: No Education class schedule given: No Attended education classes: No Education Goals Met: Yes (SEE EDUCATION ON PRIOR ITP'S, CONTINUED TO EDUCATE THROUGHOUT PROGRAM) Target Goals Complete cessation of tobacco use (1). Psychosocial Date: Jul 02, 2019 Assessment: Followup/Discharge Stages of change: action Intervention Physician Consult: No Physician Referral: No Med Change: No Stress Management Class: No Uses Stress Management Skills: Yes Education Goals Met: Yes (EXCELLENT ATTENDENCE AND HAS BEEN RECEPTIVE TO EDUCATION) Target Goal Assess presence or absence of depression using a valid screening tool (1). Maximize coping skills (2). Positive support system (2). Fall Risk Assess: Yes (NOT A FALL RISK, TUG TEST = 8) Provider Assessment Session Number: 36 Provider Assessment: No changes Adams Ratliff RN Jul 02, 2019 11:16
== END 2019-07-13 ==
LOC: M CR 13:24
PROVIDERS: ATTEND Internal Medicine Cardiovascular Disease
DX: Z95.1 Presence of aortocoronary bypass graft (principal)

== ENCOUNTER → 2019-07-29 | Outpatient (REF) | payer MEDICARE, OTHER ==
[2019-07-29 13:02] LABS: ALBUMIN 3.6 GM/DL (3.2-5.2); ALT/SGPT 31 U/L (12-78); BILIRUBIN,TOTAL 0.7 MG/DL (0.2-1.0); BLOOD UREA NITROGEN 19 MG/DL (7-18); CALCIUM LEVEL 9.6 MG/DL (8.8-10.2); CARBON DIOXIDE LEVEL 29 MEQ/L (21-32); CHLORIDE LEVEL 101 MEQ/L (98-107); CHOLESTEROL LEVEL 182 MG/DL (<200); CREATININE FOR GFR 1.18 MG/DL (0.70-1.30); GLOMERULAR FILTRATION RATE > 60.0 (>49); GLUCOSE, FASTING 169 MG/DL (70-100); HDL CHOLESTEROL 56 MG/DL (>40); LDL CHOLESTEROL 82 MG/DL (<100); NON-HDL-C 126 MG/DL; POTASSIUM SERUM 4.5 MEQ/L (3.5-5.1); SODIUM LEVEL 137 MEQ/L (136-145); TOTAL PROTEIN 7.1 GM/DL (6.4-8.2); TRIGLYCERIDES LEVEL 222 MG/DL (<150)
== END ==
LOC: M SFHCCLAY 09:30
PROVIDERS: ATTEND Nurse Practitioner Family
DX: E11.65 Type 2 diabetes mellitus with hyperglycemia (principal)

== ENCOUNTER → 2019-08-16 | Outpatient (CLI) | payer MEDICARE, BC, OTHER ==
[~2019-08-16] MED LIST changes: +TRAD5TAB PO
== END ==
LOC: M LABSMTC 12:11
PROVIDERS: ATTEND Anesthesiology
DX: Z11.59 Encounter for screening for other viral diseases (principal)

== ENCOUNTER 2019-08-19 07:39 | Day surgery (SDC) | payer MEDICARE, BC, OTHER ==
[~2019-08-19] VITALS: Ht 160 cm; Wt 97.1 kg
[~2019-08-19 07:39] MED LIST changes: +NS 1,000 ML IV ONE; +propofoL 200 MG/20 ML VIAL As Ordered ONE
[2019-08-19] MEDS ORDERED: propofoL 200 MG/20 ML VIAL As Ordered ONE (08:38)
--- NOTE | 2019-08-19 08:49 | ROOR ---
Patient Name: Osiel Maier Procedure Date: 08/19/2019 8:27 AM Date of : 1955 Age: 64 Room: [facility] Gender: Male Note Status: Finalized Procedure: Colonoscopy Indications: High risk colon cancer surveillance: Personal history of colonic polyps Providers: Smith Nguyen Jr, MD Referring MD: Pia Clifford NP Requesting Provider: Medicines: Propofol per Anesthesia Complications: No immediate complications. Procedure: Pre-Anesthesia Assessment: - Prior to the procedure, a History and Physical was performed, and patient medications and allergies were reviewed. The patient is competent. The risks and benefits of the procedure and the sedation options and risks were discussed with the patient. All questions were answered and informed consent was obtained. Patient identification and proposed procedure were verified by the physician and the nurse in the pre-procedure area and in the procedure room. Mental Status Examination: alert and oriented. Airway Examination: normal oropharyngeal airway and neck mobility. Respiratory Examination: clear to auscultation. CV Examination: normal. ASA Grade Assessment: II - A patient with mild systemic disease. After reviewing the risks and benefits, the patient was deemed in satisfactory condition to undergo the procedure. The anesthesia plan was to use moderate sedation / analgesia (conscious sedation). Immediately prior to administration of medications, the patient was re-assessed for adequacy to receive sedatives. The heart rate, respiratory rate, oxygen saturations, blood pressure, adequacy of pulmonary ventilation, and response to care were monitored throughout the procedure. The physical status of the patient was re-assessed after the procedure. The Colonoscope was introduced through the anus and advanced to the cecum, identified by appendiceal orifice and ileocecal valve. The colonoscopy was performed without difficulty. The patient tolerated the procedure well. The quality of the bowel preparation was adequate. Findings: The rectum, recto-sigmoid colon, descending colon, transverse colon, ascending colon, cecum, appendiceal orifice and ileocecal valve appeared normal. Multiple small and large-mouthed diverticula were found in the sigmoid colon. Non-bleeding external and internal hemorrhoids were found during endoscopy. The hemorrhoids were moderate. Impression: - The rectum, recto-sigmoid colon, descending colon, transverse colon, ascending colon, cecum, appendiceal orifice and ileocecal valve are normal. - Diverticulosis in the sigmoid colon. - Non-bleeding external and internal hemorrhoids. - No specimens collected. Recommendation: - Discharge patient to home (ambulatory). - Repeat colonoscopy in 5-10 years for surveillance. Smith Nguyen MD Smith Nguyen Jr, MD 08/19/2019 8:48:31 AM Electronically signed by Smith Nguyen Jr, MD Number of Addenda: 0 Note Initiated On: 08/19/2019 8:27 AM Estimated Blood Loss: Estimated blood loss: none.
[2019-08-19 09:10] VITALS: BP 124/77
== END 2019-08-19 10:00 | disposition home or self-care (01) ==
LOC: M OPP 07:39
PROVIDERS: ATTEND Surgery
DX: Z12.11 Encounter for screening for malignant neoplasm of colon (principal); K64.8 Other hemorrhoids; K57.30 Diverticulosis of large intestine without perforation or abscess without bleeding; E11.9 Type 2 diabetes mellitus without complications; I25.2 Old myocardial infarction; G47.30 Sleep apnea, unspecified; Z79.84 Long term (current) use of oral hypoglycemic drugs; Z79.899 Other long term (current) drug therapy; Z79.82 Long term (current) use of aspirin; Z87.891 Personal history of nicotine dependence

== ENCOUNTER → 2019-11-02 | Outpatient (REF) | payer MEDICARE, OTHER ==
[~2019-11-02] MED LIST changes: -ASPI81TA85 PO; +ASPI81TA86 PO; -NS 1,000 ML IV ONE; -propofoL 200 MG/20 ML VIAL As Ordered ONE
[2019-12-29 08:45] LABS: PSA TOTAL See Separate Report
[2019-12-29 08:46] LABS: PSA FREE See Separate Report
== END ==
LOC: M SFHCCLAY 08:57
PROVIDERS: ATTEND Urology
DX: R97.20 Elevated prostate specific antigen [PSA] (principal)

== ENCOUNTER → 2020-01-28 | Outpatient (REF) | payer MEDICARE, OTHER ==
[2020-01-28 12:06] LABS: BASO # 0.1 10^3/uL (0.0-0.2); BASO % 0.9 % (0.0-1.0); EOS # 0.1 10^3/uL (0.0-0.5); EOS % 1.4 % (0.0-3.0); HEMATOCRIT 37.2 % (42.0-52.0); HEMOGLOBIN 12.8 g/dl (13.5-17.5); LYMPH # 1.2 10^3/uL (1.5-5.0); MEAN CORPUSCULAR HEMOGLOBIN 29.5 pg (27.0-33.0); MEAN CORPUSCULAR HGB CONC 34.4 g/dl (32.0-36.5); MEAN CORPUSCULAR VOLUME 85.7 fl (80.0-96.0); MONO # 0.6 10^3/uL (0.0-0.8); MONO % 10.4 % (0.0-5.0); NEUTROPHILS # 3.9 10^3/uL (1.5-8.5); PLATELET COUNT, AUTOMATED 178 10^3/uL (150-450); RED BLOOD COUNT 4.34 10^6/uL (4.30-6.10); WHITE BLOOD COUNT 5.9 10^3/uL (4.0-10.0)
[2020-01-28 12:31] LABS: ALBUMIN 3.3 GM/DL (3.2-5.2); BILIRUBIN,TOTAL 0.5 MG/DL (0.2-1.0); CALCIUM LEVEL 9.6 MG/DL (8.8-10.2); CHOLESTEROL RISK RATIO 3.083 (<5); CREATININE FOR GFR 1.29 MG/DL (0.70-1.30); GLOMERULAR FILTRATION RATE 59.5 (>49); POTASSIUM SERUM 4.2 MEQ/L (3.5-5.1); TOTAL PROTEIN 6.4 GM/DL (6.4-8.2)
[2020-01-28 13:20] LABS: HEMOGLOBIN A1c 7.3 %
== END ==
LOC: M SFHCCLAY 08:49
PROVIDERS: ATTEND Nurse Practitioner Family
DX: I10 Essential (primary) hypertension (principal); E78.2 Mixed hyperlipidemia; E11.65 Type 2 diabetes mellitus with hyperglycemia

== ENCOUNTER → 2020-04-18 | Outpatient (REF) | payer MEDICARE, OTHER ==
[2020-04-19 23:07] LABS: PSA % FREE 41.8 % (.); PSA FREE 2.13 ng/mL; PSA TOTAL 5.1 ng/mL (0.0-4.0)
== END ==
LOC: M SFHCCLAY 08:42
PROVIDERS: ATTEND Urology
DX: R97.20 Elevated prostate specific antigen [PSA] (principal); I10 Essential (primary) hypertension

== ENCOUNTER → 2020-04-18 | Outpatient (REF) | payer MEDICARE, OTHER ==
[2020-04-18 11:56] LABS: CALCIUM LEVEL 9.1 MG/DL (8.8-10.2); CREATININE FOR GFR 1.33 MG/DL (0.70-1.30); GLOMERULAR FILTRATION RATE 57.4 (>49)
== END ==
LOC: M LABDRAWC 11:07
PROVIDERS: ATTEND Physician Assistant
DX: I10 Essential (primary) hypertension (principal)

== ENCOUNTER → 2020-07-19 | Outpatient (REF) | payer MEDICARE, OTHER ==
[~2020-07-19] MED LIST changes: -GLYB5TA PO; +GLYB5TAB6 PO; -LISI-538 PO; +LISI20TA33 PO
== END ==
LOC: M LABDRAWC 14:16
PROVIDERS: ATTEND Physician Assistant
DX: R60.0 Localized edema (principal); R06.9 Unspecified abnormalities of breathing

== ENCOUNTER → 2020-07-19 | Outpatient (REF) | payer MEDICARE, OTHER ==
[2020-07-19 11:51] LABS: HEMOGLOBIN A1c 6.7 %
[2020-07-19 12:17] LABS: ALBUMIN 3.8 GM/DL (3.2-5.2); BILIRUBIN,TOTAL 0.4 MG/DL (0.2-1.0); CALCIUM LEVEL 9.8 MG/DL (8.8-10.2); CREATININE FOR GFR 1.35 MG/DL (0.70-1.30); GLOMERULAR FILTRATION RATE 56.5 (>49); POTASSIUM SERUM 4.2 MEQ/L (3.5-5.1); TOTAL PROTEIN 7.1 GM/DL (6.4-8.2)
== END ==
LOC: M SFHCCLAY 08:42
PROVIDERS: ATTEND Nurse Practitioner Family
DX: E11.65 Type 2 diabetes mellitus with hyperglycemia (principal); I10 Essential (primary) hypertension; E78.2 Mixed hyperlipidemia; N40.0 Benign prostatic hyperplasia without lower urinary tract symptoms; E66.01 Morbid (severe) obesity due to excess calories

== ENCOUNTER → 2020-07-20 | Outpatient (CLI) | payer MEDICARE, BC, OTHER ==
--- NOTE | 2020-07-20 13:34 | REP ---
INDICATION: LOCALIZED EDEMA. COMPARISON: PA and lateral chest dated 09/10/2018. TECHNIQUE: Upright PA and lateral chest. FINDINGS: The lung maciel are clear. Cardiac size is normal. The paul, mediastinum and skeletal structures are unremarkable. There is chronic elevation of the right hemidiaphragm, unchanged. There are sternotomy wires as an interval change. IMPRESSION: Essentially negative PA and lateral chest <Electronically signed by Mendez Garcia > 07/20/20 1330
== END ==
LOC: M WUC 12:14
PROVIDERS: ATTEND Physician Assistant
DX: R60.0 Localized edema (principal)

== ENCOUNTER → 2020-08-14 | Outpatient (REF) | payer MEDICARE, OTHER ==
[2020-08-14 13:14] LABS: ALBUMIN 3.8 GM/DL (3.2-5.2); BILIRUBIN,TOTAL 0.5 MG/DL (0.2-1.0); CALCIUM LEVEL 9.8 MG/DL (8.8-10.2); CREATININE FOR GFR 1.71 MG/DL (0.70-1.30); GLOMERULAR FILTRATION RATE 42.9 (>49); POTASSIUM SERUM 4.4 MEQ/L (3.5-5.1); TOTAL PROTEIN 7.2 GM/DL (6.4-8.2)
== END ==
LOC: M SFHCCLAY 09:19
PROVIDERS: ATTEND Nurse Practitioner Family
DX: E11.65 Type 2 diabetes mellitus with hyperglycemia (principal)

== ENCOUNTER → 2020-08-28 | Outpatient (REF) | payer MEDICARE, OTHER ==
[2020-08-28 11:51] LABS: CALCIUM LEVEL 9.3 MG/DL (8.8-10.2); CREATININE FOR GFR 1.59 MG/DL (0.70-1.30); GLOMERULAR FILTRATION RATE 46.6 (>49); POTASSIUM SERUM 4.5 MEQ/L (3.5-5.1)
== END ==
LOC: M SFHCCLAY 08:20
PROVIDERS: ATTEND Nurse Practitioner Family
DX: E11.65 Type 2 diabetes mellitus with hyperglycemia (principal)

== ENCOUNTER → 2020-09-12 | Outpatient (REF) | payer MEDICARE, OTHER ==
[2020-09-12 12:32] LABS: CALCIUM LEVEL 9.8 MG/DL (8.8-10.2); CREATININE FOR GFR 1.51 MG/DL (0.70-1.30); GLOMERULAR FILTRATION RATE 49.5 (>49); POTASSIUM SERUM 4.3 MEQ/L (3.5-5.1)
== END ==
LOC: M LABDRAWC 11:20
PROVIDERS: ATTEND Physician Assistant
DX: I50.32 Chronic diastolic (congestive) heart failure (principal)

== ENCOUNTER → 2020-09-26 | Outpatient (REF) | payer MEDICARE, OTHER ==
[2020-09-26 13:14] LABS: CALCIUM LEVEL 9.3 MG/DL (8.8-10.2); CREATININE FOR GFR 1.42 MG/DL (0.70-1.30); GLOMERULAR FILTRATION RATE 53.1 (>49); POTASSIUM SERUM 4.7 MEQ/L (3.5-5.1)
[2020-09-26 16:06] LABS: HEMOGLOBIN A1c 7.1 %
== END ==
LOC: M SFHCCLAY 08:44
PROVIDERS: ATTEND Nurse Practitioner Family
DX: E11.65 Type 2 diabetes mellitus with hyperglycemia (principal); I10 Essential (primary) hypertension; E78.2 Mixed hyperlipidemia; E66.01 Morbid (severe) obesity due to excess calories

== ENCOUNTER → 2020-10-18 | Outpatient (REF) | payer MEDICARE, OTHER ==
[2020-10-20 00:11] LABS: PSA % FREE 43.9 % (.); PSA FREE 3.16 ng/mL; PSA TOTAL 7.2 ng/mL (0.0-4.0)
== END ==
LOC: M SMT 11:14
PROVIDERS: ATTEND Urology
DX: R97.20 Elevated prostate specific antigen [PSA] (principal); I50.32 Chronic diastolic (congestive) heart failure

== ENCOUNTER → 2020-10-18 | Outpatient (REF) | payer MEDICARE, OTHER ==
[2020-10-18 12:30] LABS: CREATININE FOR GFR 1.67 MG/DL (0.70-1.30); POTASSIUM SERUM 4.7 MEQ/L (3.5-5.1)
== END ==
LOC: M LABDRAWC 11:12
PROVIDERS: ATTEND Physician Assistant
DX: I50.32 Chronic diastolic (congestive) heart failure (principal)

== ENCOUNTER → 2021-01-02 | Outpatient (REF) | payer MEDICARE, OTHER ==
[2021-01-02 11:31] LABS: ALBUMIN 3.4 GM/DL (3.2-5.2); BILIRUBIN,TOTAL 0.4 MG/DL (0.2-1.0); CALCIUM LEVEL 9.3 MG/DL (8.8-10.2); CREATININE FOR GFR 1.35 MG/DL (0.70-1.30); GLOMERULAR FILTRATION RATE 56.3 (>49); POTASSIUM SERUM 4.8 MEQ/L (3.5-5.1); TOTAL PROTEIN 6.7 GM/DL (6.4-8.2)
[2021-01-02 11:54] LABS: CREATININE, URINE 85.9 MG/DL; MAU/CREAT RATIO 338.7 MCG/MG (0.0-30.0)
[2021-01-02 12:19] LABS: HEMOGLOBIN A1c 7.1 %
[2021-01-04 00:07] LABS: PSA % FREE 45.1 % (.); PSA FREE 2.39 ng/mL; PSA TOTAL 5.3 ng/mL (0.0-4.0)
== END ==
LOC: M SFHCCLAY 08:59
PROVIDERS: ATTEND Nurse Practitioner Family
DX: E11.65 Type 2 diabetes mellitus with hyperglycemia (principal); R97.20 Elevated prostate specific antigen [PSA]

== ENCOUNTER → 2021-04-17 | Outpatient (REF) | payer MEDICARE, OTHER ==
[2021-04-17 16:13] LABS: HEMATOCRIT 36.4 % (42.0-52.0); HEMOGLOBIN 12.2 g/dl (13.5-17.5); MEAN CORPUSCULAR HEMOGLOBIN 29.6 pg (27.0-33.0); MEAN CORPUSCULAR HGB CONC 33.5 g/dl (32.0-36.5); MEAN CORPUSCULAR VOLUME 88.3 fl (80.0-96.0); PLATELET COUNT, AUTOMATED 212 10^3/uL (150-450); RED BLOOD COUNT 4.12 10^6/uL (4.30-6.10); WHITE BLOOD COUNT 6.3 10^3/uL (4.0-10.0)
[2021-04-17 16:50] LABS: ALBUMIN 3.6 GM/DL (3.2-5.2); BILIRUBIN,TOTAL 0.4 MG/DL (0.2-1.0); CALCIUM LEVEL 9.4 MG/DL (8.8-10.2); CHOLESTEROL RISK RATIO 3.488 (<5); CREATININE FOR GFR 1.5 MG/DL (0.70-1.30); GLOMERULAR FILTRATION RATE 49.8 (>49); MAGNESIUM LEVEL 1.9 MG/DL (1.8-2.4); POTASSIUM SERUM 4.7 MEQ/L (3.5-5.1); TOTAL PROTEIN 6.8 GM/DL (6.4-8.2)
== END ==
LOC: M LABDRAWC 15:32
PROVIDERS: ATTEND Physician Assistant
DX: I25.10 Atherosclerotic heart disease of native coronary artery without angina pectoris (principal); I50.32 Chronic diastolic (congestive) heart failure; E78.2 Mixed hyperlipidemia; I48.0 Paroxysmal atrial fibrillation

== ENCOUNTER → 2021-06-25 | Outpatient (REF) | payer MEDICARE, OTHER ==
[~2021-06-25] MED LIST changes: +OMEP-173 PO; -OMEP-218 PO
[2021-06-25 16:29] LABS: BASO # 0.1 10^3/uL (0.0-0.2); BASO % 0.7 % (0.0-1.0); EOS # 0.1 10^3/uL (0.0-0.5); EOS % 1.7 % (0.0-3.0); HEMATOCRIT 38.8 % (42.0-52.0); HEMOGLOBIN 12.9 g/dl (13.5-17.5); LYMPH # 1.5 10^3/uL (1.5-5.0); LYMPH % 20.5 % (24.0-44.0); MEAN CORPUSCULAR HEMOGLOBIN 29.3 pg (27.0-33.0); MEAN CORPUSCULAR HGB CONC 33.2 g/dl (32.0-36.5); MEAN CORPUSCULAR VOLUME 88.2 fl (80.0-96.0); MONO # 0.8 10^3/uL (0.0-0.8); MONO % 10.6 % (2.0-8.0); NEUTROPHILS # 4.7 10^3/uL (1.5-8.5); NEUTROPHILS % 66.4 % (36.0-66.0); PLATELET COUNT, AUTOMATED 223 10^3/uL (150-450); WHITE BLOOD COUNT 7.1 10^3/uL (4.0-10.0)
[2021-06-25 16:43] LABS: HEMOGLOBIN A1c 6.9 %
[2021-06-25 17:10] LABS: ALBUMIN 3.7 GM/DL (3.2-5.2); BILIRUBIN,TOTAL 0.4 MG/DL (0.2-1.0); CALCIUM LEVEL 9.2 MG/DL (8.8-10.2); CHOLESTEROL RISK RATIO 3.957 (<5); CREATININE FOR GFR 1.58 MG/DL (0.70-1.30); FREE T4 0.99 NG/DL (0.76-1.46); GLOMERULAR FILTRATION RATE 46.9 (>49); POTASSIUM SERUM 4.9 MEQ/L (3.5-5.1); THYROID STIMULATING HORMONE 2.02 uIU/ML (0.358-3.740); TOTAL PROTEIN 7.1 GM/DL (6.4-8.2)
== END ==
LOC: M SFHCCLAY 09:43
PROVIDERS: ATTEND Urology
DX: R97.20 Elevated prostate specific antigen [PSA] (principal); Z79.899 Other long term (current) drug therapy

== ENCOUNTER → 2021-07-13 | Outpatient (CLI) | payer MEDICARE, BC, OTHER | LOC: M RAD 13:43 | PROVIDERS: ATTEND Nurse Practitioner Family | DX: N18.31 Chronic kidney disease, stage 3a (principal) ==

== ENCOUNTER → 2021-07-25 | Outpatient (CLI) | payer MEDICARE, BC, OTHER ==
[~2021-07-25] MED LIST changes: +ISOVUE-370 76% 100ML VIAL As Ordered ONE
== END ==
LOC: M RAD 07:42
PROVIDERS: ATTEND Nurse Practitioner Family
DX: R93.421 Abnormal radiologic findings on diagnostic imaging of right kidney (principal)
CPT/HCPCS: 74178; Q9967

== ENCOUNTER → 2021-08-02 | Outpatient (REF) | payer MEDICARE, BC, OTHER ==
[~2021-08-02] MED LIST changes: -ISOVUE-370 76% 100ML VIAL As Ordered ONE
[2021-08-02 16:18] LABS: CALCIUM LEVEL 9.7 MG/DL (8.8-10.2); CREATININE FOR GFR 1.57 MG/DL (0.70-1.30); GLOMERULAR FILTRATION RATE 47.3 (>49); POTASSIUM SERUM 5.1 MEQ/L (3.5-5.1)
== END ==
LOC: M LABDRAWC 15:27
PROVIDERS: ATTEND Physician Assistant
DX: I50.32 Chronic diastolic (congestive) heart failure (principal)

== ENCOUNTER → 2021-09-28 | Outpatient (REF) | payer MEDICARE, OTHER ==
[2021-09-28 17:08] LABS: CALCIUM LEVEL 8.9 MG/DL (8.8-10.2); CREATININE FOR GFR 1.72 MG/DL (0.70-1.30); GLOMERULAR FILTRATION RATE 42.4 (>49); POTASSIUM SERUM 5.2 MEQ/L (3.5-5.1)
== END ==
LOC: M SFHCCLAY 09:37
PROVIDERS: ATTEND Nurse Practitioner Family
DX: N18.31 Chronic kidney disease, stage 3a (principal)

== ENCOUNTER → 2021-10-03 | Outpatient (REF) | payer MEDICARE, OTHER ==
[2021-10-03 16:26] LABS: HEMOGLOBIN A1c 6.9 %
== END ==
LOC: M SFHCCLAY 10:07
PROVIDERS: ATTEND Nurse Practitioner Family
DX: E11.65 Type 2 diabetes mellitus with hyperglycemia (principal)

== ENCOUNTER → 2021-11-01 | Outpatient (REF) | payer MEDICARE, OTHER ==
[2021-11-01 17:04] LABS: CALCIUM LEVEL 9.3 MG/DL (8.8-10.2); CREATININE FOR GFR 1.81 MG/DL (0.70-1.30); MAGNESIUM LEVEL 1.9 MG/DL (1.8-2.4); POTASSIUM SERUM 4.9 MEQ/L (3.5-5.1)
== END ==
LOC: M LABDRAWC 15:44
PROVIDERS: ATTEND Physician Assistant
DX: I50.32 Chronic diastolic (congestive) heart failure (principal); I48.0 Paroxysmal atrial fibrillation; E83.42 Hypomagnesemia

== ENCOUNTER → 2021-12-31 | Outpatient (REF) | payer MEDICARE, OTHER ==
[2021-12-31 12:19] LABS: ALBUMIN 3.6 GM/DL (3.2-5.2); BILIRUBIN,TOTAL 0.5 MG/DL (0.2-1.0); CALCIUM LEVEL 9.5 MG/DL (8.8-10.2); CREATININE FOR GFR 1.4 MG/DL (0.70-1.30); GLOMERULAR FILTRATION RATE 53.8 (>49); POTASSIUM SERUM 4.4 MEQ/L (3.5-5.1); TOTAL PROTEIN 7.2 GM/DL (6.4-8.2)
[2021-12-31 12:34] LABS: HEMOGLOBIN A1c 5.9 %
== END ==
LOC: M SFHCCLAY 08:55
PROVIDERS: ATTEND Nurse Practitioner Family
DX: R97.20 Elevated prostate specific antigen [PSA] (principal); E11.65 Type 2 diabetes mellitus with hyperglycemia

== ENCOUNTER → 2022-05-10 | Outpatient (REF) | payer MEDICARE, BC, OTHER ==
[~2022-05-10] MED LIST changes: +ALLO100T PO; +ASPI81TA26 PO; +CLOP75TA99 PO; +FLOM0.4C39 PO; -PLAV1TAB2 PO; +SPIR-10 PO
[2022-05-10 17:37] LABS: BLOOD UREA NITROGEN 27 MG/DL (9-23); CALCIUM LEVEL 9.1 MG/DL (8.3-10.6); CARBON DIOXIDE LEVEL 26 MMOL/L (20-31); CHLORIDE LEVEL 102 MMOL/L (98-107); CREATININE FOR GFR 1.26 MG/DL (0.70-1.30); GLOMERULAR FILTRATION RATE > 60.0 (>49); GLUCOSE, FASTING 241 MG/DL (74-106); POTASSIUM SERUM 4.2 MMOL/L (3.5-5.1); SODIUM LEVEL 139 MMOL/L (136-145)
== END ==
LOC: M LABDRAWC 17:08
PROVIDERS: ATTEND Physician Assistant
DX: I50.32 Chronic diastolic (congestive) heart failure (principal)

== ENCOUNTER → 2022-05-12 | Outpatient (CLI) | payer MEDICARE, BC, OTHER | LOC: M LABSMTC 09:05 | PROVIDERS: ATTEND Anesthesiology | DX: Z01.812 Encounter for preprocedural laboratory examination (principal); Z11.52 Encounter for screening for COVID-19 ==

== ENCOUNTER 2022-05-16 10:46 | Day surgery (SDC) | payer MEDICARE, BC, OTHER ==
[~2022-05-16] VITALS: Ht 160 cm; Wt 94.3 kg
[2022-05-16] MEDS ORDERED: propofoL 200 MG/20 ML VIAL As Ordered ONE ×2 (12:41→12:47)
[2022-05-16] MEDS ORDERED: LIDOCAINE 2% 100MG/5ML SDV (FOR ANES.) As Ordered ONE (12:41)
[2022-05-16 13:26] VITALS: BP 137/77
== END 2022-05-16 13:25 | disposition home or self-care (01) ==
LOC: M OPP 10:46
PROVIDERS: ATTEND Surgery
DX: R10.13 Epigastric pain (principal); Z79.02 Long term (current) use of antithrombotics/antiplatelets; Z79.1 Long term (current) use of non-steroidal anti-inflammatories (NSAID); Z79.82 Long term (current) use of aspirin; Z79.84 Long term (current) use of oral hypoglycemic drugs; Z79.810 Long term (current) use of selective estrogen receptor modulators (SERMs); Z79.899 Other long term (current) drug therapy; I25.2 Old myocardial infarction; I10 Essential (primary) hypertension; E78.5 Hyperlipidemia, unspecified; E11.9 Type 2 diabetes mellitus without complications; G47.33 Obstructive sleep apnea (adult) (pediatric); Z99.89 Dependence on other enabling machines and devices

== ENCOUNTER → 2022-07-01 | Outpatient (REF) | payer MEDICARE, OTHER | LOC: M SFHCCLAY 10:26 | PROVIDERS: ATTEND Urology | DX: R97.20 Elevated prostate specific antigen [PSA] (principal) ==

== ENCOUNTER → 2022-07-12 | Outpatient (CLI) | payer MEDICARE, BC, OTHER | LOC: M WHC 13:51 | PROVIDERS: ATTEND Ophthalmology | DX: H34.10 Central retinal artery occlusion, unspecified eye (principal) ==

== ENCOUNTER → 2022-07-18 | Outpatient (REF) | payer MEDICARE, OTHER ==
[2022-07-18 18:57] LABS: CALCIUM LEVEL 9.2 MG/DL (8.3-10.6); CREATININE FOR GFR 1.58 MG/DL (0.70-1.30); GLOMERULAR FILTRATION RATE 46.8 (>49); POTASSIUM SERUM 4.4 MMOL/L (3.5-5.1)
== END ==
LOC: M LABSMT 10:54
PROVIDERS: ATTEND Urology
DX: R97.20 Elevated prostate specific antigen [PSA] (principal)

== ENCOUNTER → 2022-07-22 | Outpatient (CLI) | payer MEDICARE, BC, OTHER ==
[~2022-07-22] MED LIST changes: +PROHANCE 279.3MG/ML 5ML VIAL As Ordered ONE
== END ==
LOC: M RAD 14:34
PROVIDERS: ATTEND Urology
DX: M25.572 Pain in left ankle and joints of left foot (principal); R97.20 Elevated prostate specific antigen [PSA]
CPT/HCPCS: 36415; 72197; 84550; A9576

== ENCOUNTER → 2022-07-22 | Outpatient (REF) | payer MEDICARE, OTHER ==
[~2022-07-22] MED LIST changes: -PROHANCE 279.3MG/ML 5ML VIAL As Ordered ONE
== END ==
LOC: M LABDRAWC 11:08
PROVIDERS: ATTEND Student in an Organized Health Care Education/Training Program
DX: M25.572 Pain in left ankle and joints of left foot (principal)

== ENCOUNTER → 2022-07-30 | Outpatient (REF) | payer MEDICARE, BC, OTHER | LOC: M SMT 13:05 | PROVIDERS: ATTEND Urology | DX: R97.20 Elevated prostate specific antigen [PSA] (principal) ==

== ENCOUNTER → 2022-09-23 | Outpatient (REF) | payer MEDICARE, OTHER ==
[2022-09-23 19:00] LABS: CREATININE, URINE 184.8 MG/DL
== END ==
LOC: M LAB REF 16:59
PROVIDERS: ATTEND Internal Medicine Nephrology
DX: E11.21 Type 2 diabetes mellitus with diabetic nephropathy (principal); N18.31 Chronic kidney disease, stage 3a

== ENCOUNTER → 2022-10-03 | Outpatient (REF) | payer MEDICARE, OTHER ==
[2022-10-03 18:32] LABS: BASO # 0.1 10^3/uL (0.0-0.2); BASO % 0.8 % (0.0-1.0); EOS # 0.1 10^3/uL (0.0-0.5); EOS % 1.5 % (0.0-3.0); HEMATOCRIT 39.6 % (42.0-52.0); HEMOGLOBIN 12.7 g/dl (13.5-17.5); LYMPH # 1.5 10^3/uL (1.5-5.0); LYMPH % 19.7 % (24.0-44.0); MEAN CORPUSCULAR HEMOGLOBIN 28.2 pg (27.0-33.0); MEAN CORPUSCULAR HGB CONC 32.1 g/dl (32.0-36.5); MONO # 0.8 10^3/uL (0.0-0.8); MONO % 11.2 % (2.0-8.0); NEUTROPHILS % 66.7 % (36.0-66.0); PLATELET COUNT, AUTOMATED 232 10^3/uL (150-450); WHITE BLOOD COUNT 7.4 10^3/uL (4.0-10.0)
[2022-10-03 18:42] LABS: ALBUMIN 3.7 G/DL (3.2-5.2); BILIRUBIN,TOTAL 0.4 MG/DL (0.3-1.2); CALCIUM LEVEL 8.7 MG/DL (8.3-10.6); CHOLESTEROL RISK RATIO 3.56 (<5); CREATININE FOR GFR 1.65 MG/DL (0.70-1.30); GLOMERULAR FILTRATION RATE 44.4 (>49); HDL CHOLESTEROL 37.9 MG/DL (>40); LDL CHOLESTEROL 48.7 MG/DL (<100); MAGNESIUM LEVEL 1.7 MG/DL (1.8-2.4); NON-HDL-C 97.1 MG/DL; POTASSIUM SERUM 4.8 MMOL/L (3.5-5.1); TOTAL PROTEIN 6.6 G/DL (5.7-8.2)
[2022-10-03 18:43] LABS: FREE T4 1.04 NG/DL (0.89-1.76); THYROID STIMULATING HORMONE 1.921 uIU/ML (0.55-4.78)
== END ==
LOC: M SFHCCLAY 09:58
PROVIDERS: ATTEND Nurse Practitioner Family
DX: E11.65 Type 2 diabetes mellitus with hyperglycemia (principal); E78.2 Mixed hyperlipidemia; N40.0 Benign prostatic hyperplasia without lower urinary tract symptoms; E66.01 Morbid (severe) obesity due to excess calories; R97.20 Elevated prostate specific antigen [PSA]; R23.9 Unspecified skin changes; I11.0 Hypertensive heart disease with heart failure

== ENCOUNTER → 2022-11-27 | Outpatient (CLI) | payer MEDICARE, BC, OTHER ==
[2022-11-27 15:39] LABS: BASO # 0.1 10^3/uL (0.0-0.2); BASO % 0.7 % (0.0-1.0); EOS # 0.1 10^3/uL (0.0-0.5); EOS % 1.3 % (0.0-3.0); HEMATOCRIT 39.1 % (42.0-52.0); HEMOGLOBIN 12.5 g/dl (13.5-17.5); LYMPH # 1.3 10^3/uL (1.5-5.0); LYMPH % 19.4 % (24.0-44.0); MEAN CORPUSCULAR HEMOGLOBIN 27.6 pg (27.0-33.0); MEAN CORPUSCULAR VOLUME 86.3 fl (80.0-96.0); MONO # 0.8 10^3/uL (0.0-0.8); MONO % 11.2 % (2.0-8.0); NEUTROPHILS # 4.5 10^3/uL (1.5-8.5); NEUTROPHILS % 67.3 % (36.0-66.0); PLATELET COUNT, AUTOMATED 209 10^3/uL (150-450); RED BLOOD COUNT 4.53 10^6/uL (4.30-6.10); WHITE BLOOD COUNT 6.8 10^3/uL (4.0-10.0)
[2022-11-27 15:55] LABS: ERYTHROCYTE SEDIMENTATION RATE 43 mm/hr (0-20)
[2022-11-27 16:07] LABS: URIC ACID 6.4 MG/DL (3.7-9.2)
[2022-11-27 16:09] LABS: C REACTIVE PROTEIN QUANTITATIV < 0.40 MG/DL (<1.0)
[2022-11-27 16:11] LABS: ALBUMIN 3.6 G/DL (3.2-5.2); ALKALINE PHOSPHATASE 129 U/L (46-116); ALT/SGPT 30 U/L (7.0-40); AST/SGOT 13 U/L (<34); BILIRUBIN,TOTAL 0.4 MG/DL (0.3-1.2); BLOOD UREA NITROGEN 18 MG/DL (9-23); CALCIUM LEVEL 9.4 MG/DL (8.3-10.6); CARBON DIOXIDE LEVEL 27 MMOL/L (20-31); CHLORIDE LEVEL 102 MMOL/L (98-107); CREATININE FOR GFR 1.61 MG/DL (0.70-1.30); GLOMERULAR FILTRATION RATE 45.7 (>49); GLUCOSE, FASTING 190 MG/DL (74-106); POTASSIUM SERUM 4.4 MMOL/L (3.5-5.1); RHEUMATOID FACTOR QUANT < 3.5 IU/ML (<14); SODIUM LEVEL 138 MMOL/L (136-145); TOTAL PROTEIN 6.8 G/DL (5.7-8.2)
== END ==
LOC: M PLALAB 12:07
PROVIDERS: ATTEND Student in an Organized Health Care Education/Training Program
DX: M19.072 Primary osteoarthritis, left ankle and foot (principal)

== ENCOUNTER → 2023-01-03 | Outpatient (CLI) | payer MEDICARE, BC, OTHER | LOC: M PLAIMG 12:46 | PROVIDERS: ATTEND Physician Assistant | DX: M25.512 Pain in left shoulder (principal) ==

== ENCOUNTER → 2023-02-18 | Outpatient (REF) | payer MEDICARE, OTHER | LOC: M LAB REF 17:07 | PROVIDERS: ATTEND Physician Assistant Medical | DX: H60.8X1 Other otitis externa, right ear (principal) ==

== ENCOUNTER → 2023-03-26 | Outpatient (REF) | payer MEDICARE, OTHER | LOC: M LAB REF 17:12 | PROVIDERS: ATTEND Physician Assistant Medical | DX: H60.63 Unspecified chronic otitis externa, bilateral (principal) ==

== ENCOUNTER → 2023-04-25 | Outpatient (CLI) | payer MEDICARE, BC, OTHER | LOC: M RAD 09:38 | PROVIDERS: ATTEND Physician Assistant Medical | DX: H92.11 Otorrhea, right ear (principal) ==

== ENCOUNTER → 2023-06-18 | Outpatient (REF) | payer MEDICARE, BC, OTHER ==
[2023-06-18 18:03] LABS: ALBUMIN 3.6 G/DL (3.2-5.2); BILIRUBIN,DIRECT 0.1 MG/DL (<0.4); BILIRUBIN,TOTAL 0.5 MG/DL (0.3-1.2); TOTAL PROTEIN 6.8 G/DL (5.7-8.2)
== END ==
LOC: M LABDRAWC 17:24
PROVIDERS: ATTEND Nurse Practitioner Family
DX: B35.1 Tinea unguium (principal)

== ENCOUNTER → 2023-06-18 | Outpatient (REF) | payer MEDICARE, BC, OTHER ==
[2023-06-18 18:02] LABS: ALBUMIN 3.6 G/DL (3.2-5.2); BILIRUBIN,TOTAL 0.5 MG/DL (0.3-1.2); CALCIUM LEVEL 9.3 MG/DL (8.3-10.6); CHOLESTEROL RISK RATIO 3.35 (<5); CREATININE FOR GFR 1.4 MG/DL (0.70-1.30); GLOMERULAR FILTRATION RATE 53.7 (>49); HDL CHOLESTEROL 46.8 MG/DL (>40); LDL CHOLESTEROL 63.4 MG/DL (<100); MAGNESIUM LEVEL 1.8 MG/DL (1.8-2.4); NON-HDL-C 110.2 MG/DL; POTASSIUM SERUM 4.7 MMOL/L (3.5-5.1); TOTAL PROTEIN 6.7 G/DL (5.7-8.2)
== END ==
LOC: M LABDRAWC 17:26
PROVIDERS: ATTEND Physician Assistant
DX: I25.10 Atherosclerotic heart disease of native coronary artery without angina pectoris (principal); I50.32 Chronic diastolic (congestive) heart failure; I48.0 Paroxysmal atrial fibrillation; E78.2 Mixed hyperlipidemia; B35.1 Tinea unguium

== ENCOUNTER → 2023-07-04 | Outpatient (CLI) | payer MEDICARE, BC | LOC: M RAD 10:23 | PROVIDERS: ATTEND Physician Assistant | DX: I65.23 Occlusion and stenosis of bilateral carotid arteries (principal) ==

== ENCOUNTER → 2023-08-13 | Outpatient (REF) | payer MEDICARE, BC | LOC: M SFHCCLAY 10:09 | PROVIDERS: ATTEND Nurse Practitioner Family | DX: R97.20 Elevated prostate specific antigen [PSA] (principal); E11.65 Type 2 diabetes mellitus with hyperglycemia; I10 Essential (primary) hypertension; E78.2 Mixed hyperlipidemia; N40.0 Benign prostatic hyperplasia without lower urinary tract symptoms; E66.01 Morbid (severe) obesity due to excess calories; I50.9 Heart failure, unspecified; R23.9 Unspecified skin changes ==

== ENCOUNTER → 2023-12-22 | Outpatient (REF) | payer MEDICARE, BC ==
[2023-12-22 19:06] LABS: HEMATOCRIT 41.2 % (42.0-52.0); HEMOGLOBIN 13.5 g/dl (13.5-17.5); MEAN CORPUSCULAR HEMOGLOBIN 28.6 pg (27.0-33.0); MEAN CORPUSCULAR HGB CONC 32.8 g/dl (32.0-36.5); MEAN CORPUSCULAR VOLUME 87.3 fl (80.0-96.0); PLATELET COUNT, AUTOMATED 245 10^3/uL (150-450); RED BLOOD COUNT 4.72 10^6/uL (4.30-6.10); WHITE BLOOD COUNT 6.5 10^3/uL (4.0-10.0)
[2023-12-22 19:46] LABS: CALCIUM LEVEL 10.1 MG/DL (8.3-10.6); CREATININE FOR GFR 1.32 MG/DL (0.70-1.30); GLOMERULAR FILTRATION RATE 57.3 (>49); POTASSIUM SERUM 4.9 MMOL/L (3.5-5.1)
== END ==
LOC: M LABDRAWC 16:44
PROVIDERS: ATTEND Physician Assistant
DX: I50.32 Chronic diastolic (congestive) heart failure (principal); I48.21 Permanent atrial fibrillation

== ENCOUNTER → 2023-12-22 | Outpatient (REF) | payer MEDICARE, BC ==
[2023-12-22 19:31] LABS: HEMOGLOBIN A1c 6.1 % (4.0-6.0)
[2023-12-22 19:33] LABS: ALBUMIN 3.4 G/DL (3.2-5.2); BILIRUBIN,TOTAL 0.4 MG/DL (0.3-1.2); CALCIUM LEVEL 10.5 MG/DL (8.3-10.6); CREATININE FOR GFR 1.32 MG/DL (0.70-1.30); GLOMERULAR FILTRATION RATE 57.3 (>49); TOTAL PROTEIN 6.7 G/DL (5.7-8.2)
== END ==
LOC: M SFHCCLAY 09:30
PROVIDERS: ATTEND Nurse Practitioner Family
DX: E11.65 Type 2 diabetes mellitus with hyperglycemia (principal); I50.32 Chronic diastolic (congestive) heart failure; I48.21 Permanent atrial fibrillation

== ENCOUNTER → 2023-12-24 | Outpatient (REF) | payer MEDICARE, BC ==
[2023-12-24 18:06] LABS: CREATININE,RANDOM URINE 114.7 MG/DL
[2023-12-24 18:07] LABS: TOTAL PROTEIN,RANDOM URINE 130.7 MG/DL (0.0-14.0)
== END ==
LOC: M LAB REF 17:07
PROVIDERS: ATTEND Internal Medicine Nephrology
DX: N18.31 Chronic kidney disease, stage 3a (principal)

== ENCOUNTER → 2024-02-06 | Outpatient (REF) | payer MEDICARE, BC ==
[2024-02-09 11:54] LABS: PSA FREE 1.6 ng/mL; PSA TOTAL 4.4 ng/mL (< OR = 4.0)
== END ==
LOC: M SFHCCLAY 12:16
PROVIDERS: ATTEND Urology
DX: R97.20 Elevated prostate specific antigen [PSA] (principal)

== ENCOUNTER → 2024-06-22 | Outpatient (REF) | payer MEDICARE, OTHER ==
[2024-06-22 18:33] LABS: CREATININE,RANDOM URINE 91.8 MG/DL
[2024-06-22 18:34] LABS: TOTAL PROTEIN,RANDOM URINE 147.9 MG/DL (0.0-14.0)
== END ==
LOC: M LAB REF 17:15
PROVIDERS: ATTEND Internal Medicine Nephrology
DX: E11.21 Type 2 diabetes mellitus with diabetic nephropathy (principal)

== ENCOUNTER → 2024-06-28 | Outpatient (REF) | payer MEDICARE, BC ==
[2024-06-28 13:14] LABS: ALBUMIN 3.4 G/DL (3.2-5.2); BILIRUBIN,TOTAL 0.5 MG/DL (0.3-1.2); CALCIUM LEVEL 10.1 MG/DL (8.3-10.6); CHOLESTEROL RISK RATIO 3.22 (<5); CREATININE FOR GFR 1.42 MG/DL (0.70-1.30); GLOMERULAR FILTRATION RATE 52.6 (>49); HDL CHOLESTEROL 49.9 MG/DL (>40); LDL CHOLESTEROL 70.1 MG/DL (<100); MAGNESIUM LEVEL 1.8 MG/DL (1.8-2.4); NON-HDL-C 111.1 MG/DL; POTASSIUM SERUM 4.9 MMOL/L (3.5-5.1); TOTAL PROTEIN 6.8 G/DL (5.7-8.2)
[2024-06-28 13:16] LABS: FREE T4 1.24 NG/DL (0.89-1.76); THYROID STIMULATING HORMONE 2.553 uIU/ML (0.55-4.78)
[2024-06-28 13:36] LABS: CREATININE, URINE 143.7 MG/DL
[2024-06-28 13:51] LABS: MAU/CREAT RATIO 893.5 MCG/MG (0.0-30.0)
[2024-06-28 14:25] LABS: HEMOGLOBIN A1c 6.1 % (4.0-6.0)
== END ==
LOC: M SFHCCLAY 09:51
PROVIDERS: ATTEND Nurse Practitioner Family
DX: E11.65 Type 2 diabetes mellitus with hyperglycemia (principal); I11.0 Hypertensive heart disease with heart failure; E78.2 Mixed hyperlipidemia; N40.0 Benign prostatic hyperplasia without lower urinary tract symptoms; E66.01 Morbid (severe) obesity due to excess calories; R97.20 Elevated prostate specific antigen [PSA]; R23.9 Unspecified skin changes; I25.10 Atherosclerotic heart disease of native coronary artery without angina pectoris; I50.32 Chronic diastolic (congestive) heart failure; I48.0 Paroxysmal atrial fibrillation

== ENCOUNTER → 2024-06-28 | Outpatient (REF) | payer MEDICARE, OTHER ==
[2024-06-28 14:45] LABS: ALBUMIN 3.5 G/DL (3.2-5.2); BILIRUBIN,TOTAL 0.5 MG/DL (0.3-1.2); CHOLESTEROL RISK RATIO 3.23 (<5); CREATININE FOR GFR 1.48 MG/DL (0.70-1.30); GLOMERULAR FILTRATION RATE 50.2 (>49); HDL CHOLESTEROL 49.7 MG/DL (>40); LDL CHOLESTEROL 70.5 MG/DL (<100); MAGNESIUM LEVEL 1.8 MG/DL (1.8-2.4); NON-HDL-C 111.3 MG/DL; POTASSIUM SERUM 5.2 MMOL/L (3.5-5.1); TOTAL PROTEIN 6.8 G/DL (5.7-8.2)
== END ==
LOC: M LABDRAWC 10:11
PROVIDERS: ATTEND Physician Assistant
DX: I25.10 Atherosclerotic heart disease of native coronary artery without angina pectoris (principal); I50.32 Chronic diastolic (congestive) heart failure; E78.2 Mixed hyperlipidemia; I48.0 Paroxysmal atrial fibrillation

== ENCOUNTER → 2024-07-22 | Outpatient (REF) | payer MEDICARE, BC | LOC: M SFHCCLAY 10:43 | PROVIDERS: ATTEND Urology | DX: R97.20 Elevated prostate specific antigen [PSA] (principal) ==

== ENCOUNTER → 2024-08-24 | Outpatient (CLI) | payer MEDICARE, BC ==
[~2024-08-24] MED LIST changes: -FLOM0.4C39 PO; +TAMS-18 PO
== END ==
LOC: M RAD 13:08
PROVIDERS: ATTEND Physician Assistant
DX: I65.23 Occlusion and stenosis of bilateral carotid arteries (principal)

== ENCOUNTER → 2024-12-23 | Outpatient (REF) | payer MEDICARE, BC ==
[2024-12-23 12:46] LABS: ALT/SGPT 27.0 U/L (7.0-40); AST/SGOT 19.0 U/L (<34); CALCIUM LEVEL 9.9 MG/DL (8.3-10.6); CARBON DIOXIDE LEVEL 29.0 MMOL/L (20-31); CHLORIDE LEVEL 101.0 MMOL/L (98-107); CREATININE FOR GFR 1.37 MG/DL (0.70-1.30); GLOMERULAR FILTRATION RATE 55.5 (>42); POTASSIUM SERUM 4.8 MMOL/L (3.5-5.1); SODIUM LEVEL 139.0 MMOL/L (136-145)
[2024-12-23 13:08] LABS: ESTIMATED AVERAGE GLUCOSE 166.0 MG/DL (60-110)
== END ==
LOC: M SFHCCLAY 08:49
PROVIDERS: ATTEND Nurse Practitioner Family
DX: E11.65 Type 2 diabetes mellitus with hyperglycemia (principal)

== ENCOUNTER → 2025-01-14 | Outpatient (REF) | payer MEDICARE, BC | LOC: M SFHCCLAY 10:36 | PROVIDERS: ATTEND Urology | DX: R97.20 Elevated prostate specific antigen [PSA] (principal) ==

== ENCOUNTER → 2025-02-21 | Outpatient (CLI) | payer MEDICARE, BC ==
[~2025-02-21] MED LIST changes: +PROHANCE 279.3MG/ML 15ML VIAL As Ordered ONE; +PROHANCE 279.3MG/ML 5ML VIAL As Ordered ONE
== END ==
LOC: M RAD 08:50
PROVIDERS: ATTEND Urology
DX: R97.20 Elevated prostate specific antigen [PSA] (principal); N40.0 Benign prostatic hyperplasia without lower urinary tract symptoms
CPT/HCPCS: 72197; A9579